=== PATIENT | male | born 1950 | race Caucasian/White ===

== ENCOUNTER 2018-06-17 12:35 | Inpatient (IN) | payer MEDICARE, OTHER ==
[2018-06-17] MEDS ORDERED: Morphine VIAL* 4 MG/ML VIAL (1 ml vial) IV ONE ×2 (13:00→17:27)
--- NOTE | 2018-06-17 13:00 | ED ---
Lower Extremity - HPI Summary HPI Summary: Patient is a 68-year-old male who presents emergency department for right hip pain after fall that occurred 2 days ago. Patient resides by himself at home. He states he was walking across the street to the bar when his knee gave out and he fell injuring his right hip. Patient denies head injury or loss of consciousness. He denies chest pain, shortness of breath, headache, lightheadedness, dizziness. Patient states pain is presently gone worsen he is unable to bear weight today. Past medical history of hypertension, hyperlipidemia, morbidly obese, hx of DVT is anticoagulated with warfarin. Symptoms are moderate in severity. Walking makes symptoms worse. Nothing makes symptoms better. - History of Current Complaint Stated Complaint: FELL Time Seen by Provider: 06/17/18 12:48 Hx Obtained From: Patient - Allergies/Home Medications Allergies/Adverse Reactions: Allergies Allergy/AdvReac Type Severity Reaction Status Date / Time No Known Allergies Allergy Verified 06/19/18 12:24 Home Medications: Home Medications Lisinopril 1 tab PO DAILY 06/17/18 [History Confirmed 06/17/18] PMH/Surg Hx/FS Hx/Imm Hx Previously Healthy: Yes Endocrine/Hematology History: Reports: Hx Anticoagulant Therapy Denies: Hx Diabetes Cardiovascular History: Reports: Hx Deep Vein Thrombosis, Hx Embolism, Hx Hypercholesterolemia, Hx Hypertension - ON MEDICATION, Hx Peripheral Vascular Disease Denies: Hx Pacemaker/ICD Respiratory History: Denies: Hx Asthma History: Denies: Hx Dialysis, Hx Renal Disease Musculoskeletal History: Reports: Hx Arthritis - hips and knees Denies: Hx Back Problems Sensory History: Reports: Hx Contacts or Glasses Denies: Hx Hearing Aid Opthamlomology History: Reports: Hx Contacts or Glasses Psychiatric History: Denies: Hx Panic Disorder - Surgical History Surgery Procedure, Year, and Place: BILATERAL KNEE SURGERIES; DENTAL SURGERIES; VEIN REMOVED FROM BACK OF LEFT LEG; Hx Anesthesia Reactions: No - Family History Known Family History: Positive: Non-Contributory - Social History Occupation: Disabled Lives: Alone Alcohol Use: None Substance Use Type: Reports: Marijuana Substance Use Comment - Amount & Last Used: marijuana helps with pain. Smoking Status (MU): Former Smoker Type: Cigarettes Review of Systems Cardiovascular: Negative Respiratory: Negative Positive: Other - Right hip pain Skin: Negative Negative: Headache, Weakness, Paresthesia, Numbness, Syncope All Other Systems Reviewed And Are Negative: Yes Physical Exam Triage Information Reviewed: Yes Vital Signs Reviewed: Yes Appearance: Positive: Well-Appearing - Pt. lying in bed in NAD. Morbidly obese. Skin: Positive: Warm, Dry Head/Face: Positive: Normal Head/Face Inspection Eyes: Positive: Normal, EOMI Neck: Positive: Supple Respiratory/Lung Sounds: Positive: Clear to Auscultation, Breath Sounds Present Cardiovascular: Positive: Normal, RRR Musculoskeletal: Positive: Other - Chronic stasis dermatitis changes to LEs. Cannot palpate right pedial pulse, will check doppler. Foot is warm. Pain on palpation and rotatoin of right hip. NO knee or distal pain Neurological: Positive: Normal, Alert, Oriented to Person Place, Time, CN Intact II-III Psychiatric: Positive: Affect/Mood Appropriate Diagnostics - Laboratory Result Diagrams: 06/19/18 05:44 06/19/18 05:45 Lab Statement: Any lab studies that have been ordered have been reviewed, and results considered in the medical decision making process. Lower Extremity Course/Dx - Course Course Of Treatment: Patient presenting for right hip pain after a mechanical fall. He is afebrile with stable vital signs. Patient states he is unable to ambulate, suspect fracture. Patient was given IV morphine and basic labs drawn. Hip x-ray is negative for obvious acute injury, reading per radiology. Given patient's inability to ambulate a CT scan was ordered to rule out occult fracture. Blood work is unremarkable other than INR elevated at 5.49. CT hip per radiology: IMPRESSION: 1. There are advanced degenerative changes of the right hip that have progressed since the. CT dated April 27, 2016, but there is no definite fracture or dislocation. 2. Gas is seen in the distal portions of the iliopsoas muscle which is of unclear clinical. relevance. These correlate to signs or symptoms of infection/myositis. Case discussed with Dr. Mancia, recommends adding CRP and sed rate. Suspicion for infection is low given fall, afebrile and normal WBC. Pt. re-examined. Pt.'s sister states that pt. has been having a hard time ambulating at home over the last few months and since fall he has been unable to walk to the bathroom. She also notes he has been having urinary incontinence. 174: Case discussed with Dr. Hearn who agrees with admission. She would like pt. admitted to hospitalist and she will see him in the morning. I spoke with hospitalist Dr. Jeffers and she has accepted pt. to her service. - Diagnoses Differential Diagnosis/HQI/PQRI: Positive: Cellulitis, Contusion, Fracture ( Closed), Sprain, Strain Provider Diagnoses: Fall, Weakness, Hip pain, Ambulatory dysfunction Discharge - Sign-Out/Discharge Documenting (check all that apply): Patient Departure - Discharge Plan Condition: Stable Disposition: ADMITTED TO [facility] - Billing Disposition and Condition Condition: STABLE Disposition: Admitted to [facility]
[2018-06-17 13:27] LABS: ABS Basophils 0.1 10^3/ul (0-0.2); ABS Eosinophils 0.1 10^3/ul (0-0.6); ABS Lymphocytes 1.9 10^3/ul (1.0-4.8); ABS Neutrophils 7.4 10^3/ul (1.5-7.7); ABS Nucleated RBC 0 10^3/ul; Eosinophil % 1.1 %; Hematocrit 39 % (42-52); Lymphocyte % 17.7 %; Mean Corpuscular HGB Conc 34 g/dl (31-36); Mean Corpuscular Hemoglobin 28 pg (27-31); Mean Corpuscular Volume 84 fL (80-94); Mean Platelet Volume 7.6 fL (7.4-10.4); Nucleated Red Blood Cells % 0; Platelet Count 205 10^3/ul (150-450); Red Cell Distribution Width 14 % (10.5-15); White Blood Count 10.5 10^3/ul (3.5-10.8)
[2018-06-17 13:46] LABS: Albumin 3.6 g/dL (3.2-5.2); Albumin/Globulin Ratio 1.1 (1-3); BUN/Creatinine Ratio 18.8 (8-20); Calcium 9.3 mg/dL (8.6-10.3); EGFR African American 138.8 (>60); EGFR Non-African American 114.7 (>60); Globulin 3.3 g/dL (2-4); Potassium 4.3 mmol/L (3.5-5.0); Total Bilirubin 0.7 mg/dL (0.2-1.0); Total Protein 6.9 g/dL (6.4-8.9)
[2018-06-17 13:49] LABS: Activated Partial Thrombo Time 46.9 seconds (26.0-36.3)
[2018-06-17 14:35] LABS: INR 5.49 (0.77-1.02)
[2018-06-17] MEDS ORDERED: DOXYcycline CAP(*) 100 MG PO ONE (15:22)
[2018-06-17 17:37] LABS: C Reactive Protein 113.34 mg/L (<8.01)
[2018-06-17] MEDS ORDERED: Morphine VIAL* 10 MG/ML 1 ML VIAL ONE (17:48)
[2018-06-17] MEDS ORDERED: Morphine VIAL* 10 MG/ML 1 ML VIAL IV ONE (17:49)
[2018-06-17] MEDS ORDERED: Clindamycin 600 MG IVPREMIX(* 600 MG/50 ML SDV IV ONE (17:51)
[2018-06-17 18:08] LABS: Erythrocyte Sed Rate 38 mm/Hr (0-40)
[2018-06-17] MEDS ORDERED: Clindamycin 600 MG/D5W BAG(*) 600 MG/50 ML BAG IV ONE (19:00)
[2018-06-17] MEDS ORDERED: Piperacillin/Tazobac ADVAN(*) 3.375 GM in NS 0.9% 100 ML* 100 ML IVPB ONE (20:04)
[2018-06-17] MEDS ORDERED: NS 0.9% 1000 ML** 1,000 ML IV SCH (20:15)
[2018-06-17] MEDS ORDERED: LORazepam INJ* 2 MG/ML 1 ML VIAL IV PUSH ONE (20:18)
[2018-06-17] MEDS ORDERED: Iohexol 300* (CONTRAST) 10 ML SDV IV ONE ×2 (20:22→20:58)
[2018-06-17] MEDS ORDERED: Zosyn per Pharmacy* NOTE FOLLOW UP SCH (21:00)
--- NOTE | 2018-06-17 21:37 | HP ---
CC: Dr. Lucia Locke HISTORY AND PHYSICAL: DATE OF ADMISSION: 06/17/18 PRIMARY CARE PROVIDER: Dr. Lucia Locke. ATTENDING PHYSICIAN WHILE IN THE HOSPITAL: Dr. Parkinson (report being dictated by Klaus Newell NP). CONSULTING ORTHOPEDIST: Dr. Lopez. CHIEF COMPLAINT: Fall. KLAUS NEWELL NP [id number]/CPS #: [id number] MTDD
[2018-06-17 21:53] LABS: Hematocrit 41 % (42-52); Hemoglobin 13.6 g/dl (14.0-18.0)
--- NOTE | 2018-06-17 22:53 | HP ---
AMENDED REPORT NOW INCLUDES DESIGNATED COSIGNER CC: Dr. Lucia Locke; Dr. Lopez * HISTORY AND PHYSICAL: DATE OF ADMISSION: 06/17/18 PRIMARY CARE PROVIDER: Dr. Lucia Locke. ATTENDING PHYSICIAN WHILE IN THE HOSPITAL: Dr. Parkinson * (report dictated by Klaus Newell NP). CHIEF COMPLAINT: Fall. HISTORY OF PRESENT ILLNESS: Mr. Doherty is a 68-year-old male patient coming in to the ED today with complaints of having a fall 2 days ago. He has a history of morbid obesity, chronic venous stasis ulcer, history of DVT and PE; he is on chronic Coumadin, history of BENTON, he has a history of polyps, severe arthritis to his right hip, hypertension, and hyperlipidemia. He comes in. He says 2 days ago, he was walking with his walker. His legs and knees got shaky. He fell and he went down and landed on his knees. He called 911 for lift assistance. He got back into his bed and he has noticed that he has had increasing pain particularly in his hips and his right knee, and he says he has been unable to bear weight on it because it has been very painful. Any time he gets up and tries to bear his weight, his legs start shaking and he falls. He denies any new incontinence of bowel. He says he is incontinent of urine over the last 3 years. He denies having any numbness or tingling to his lower extremities. He denies having any weakness. He says he has just felt that he is having increasing pain to that hip and into his knees, so he is having difficulty ambulating. He does state that prior to this he has been having intermittent cold symptoms. He denied having any fevers or chills. He said he felt stuffed up rhinorrhea, but no shortness of breath. He says that when he does cough, he does at times get some chest discomfort, but he denies any discomfort now. Denies any abdominal pain. He had 1 episode of vomiting yesterday, but none today. He says his appetite has not decreased. He was concerned because of the pain in his hip, the fact he could not really ambulate , and he came into the ED today to be evaluated. PAST MEDICAL HISTORY: Significant for: 1. Morbid obesity. 2. Chronic venous stasis ulcer. 3. DVT and PE in the past. 4. BENTON. 5. Polyps. 6. Arthritis. 7. Hypertension. 8. Hyperlipidemia. PAST SURGICAL HISTORY: He has had: 1. Knee surgery. 2. Vein stripping. 3. Tonsillectomy. HOME MEDICATIONS: Include: 1. Lisinopril 1 tablet daily. 2. Pravachol 10 mg daily. 3. Warfarin 10 mg daily. ALLERGIES TO MEDICATION: Include ZINC OXIDE. FAMILY HISTORY: His mother had colon cancer, father had prostate cancer. SOCIAL HISTORY: He is former smoker. He does not drink alcohol. Surrogate decision maker is not appointed at this point. REVIEW OF SYSTEMS: There is no documented fever. He denied any significant weight change. There is no double vision. He denies having any ear discharge. There was no rhinorrhea. There is no sore throat, no thyroid enlargement. He denied having any chest pain. There is no orthopnea. There was no nocturnal dyspnea. There was no abdominal pain. There was no dysuria. There was no frequency. No seizure. No loss of consciousness. No pruritus, no skin ulcerations. Review of 14 systems was completed, all others negative. PHYSICAL EXAMINATION GENERAL: At this time, Mr. Doherty is a 68-year-old male patient. He is sitting on the ED stretcher. He is morbidly obese. He does not appear to be in any acute distress. VITAL SIGNS: Blood pressure 122/63, pulse 93, respirations 18, O2 sat 94%, temperature was 98.2. HEENT: Head: Atraumatic and normocephalic. Eyes: EOMs are intact. Sclerae anicteric and not pale. Throat: Oral mucosa appears to be moist. No oropharyngeal erythema. NECK: Supple. LUNGS: Clear to auscultation bilaterally. There were no wheezes, rales, or rhonchi. HEART: Sounds S1, S2. He had a regular rate and rhythm. No murmurs, rubs, or gallops. ABDOMEN: Soft. It was flat, nontender. Bowel sounds were present. EXTREMITIES: He has got 5/5 dorsiflexion bilaterally. On the left leg, he has got 5/5 strength to knee flexion and extension. Hip flexion, he had good strength at 5/5 strength. The right knee is contracted and shortened, which he says has been an issue for several years. He is really unable to straighten the leg due to pain in the knee and at the hip. Sensation in distal CSMs are intact. Pulses are dopplerable bilaterally. He does have chronic venous stasis brawny discoloration to the lower extremities. NEUROLOGIC: He is awake. He is alert. He is oriented x3. His tongue is midline and his foster parent are equal. He had no gross focal deficits. SKIN: Intact. DIAGNOSTIC STUDIES/LAB DATA: WBC of 10.5, RBC of 4.6, hemoglobin of 13.3, hematocrit 39, platelet count 205. ESR of 38. His INR was 5.49, PTT 46.9. Sodium 132, his potassium was 4.3, chloride 97, bicarb 29, BUN 13, creatinine 0.69, glucose 99, calcium 9.3. Total bili 0.7, AST 26, ALT 23, alk phos 62. CK 688, CRP of 113, albumin 3.6. He did have multiple imaging in the ED. Chest x-ray, limited exam given the patient's body habitus, but impression: No active cardiopulmonary disease. He had a CT pelvis, which showed there were advanced degenerative changes of the right hip that have progressed since the CT dated 04/27/16, but there is no definite fracture or dislocation. Gas is seen in the distal portions of the iliopsoas muscle, which is of unclear clinical relevance. Please correlate to signs and symptoms of infectious myositis. He had a hip and pelvis x-ray, which showed marked degenerative changes of the right hip. Old medical records were reviewed. ASSESSMENT AND PLAN: Mr. Doherty is a 68-year-old male patient coming into the ED today with complaints of a fall 2 days ago. He was concerned because he has been having difficulty walking since. He says whenever he has to bear his weight he has significant pain in his hip. We were asked to evaluate for admission. He will be admitted under inpatient status for: 1. Right hip pain, possible iliopsoas infection. At this point, again, etiology is unclear. I did touch base with Dr. Lopez. The patient says that the hip deformity is chronic in nature. He does have severe arthritis. The plan at this point is to get an MRI of the hip. Orthopedics consult has been placed. I will image the abdomen with contrast, a CT abdomen and pelvis, to make sure there are no signs of infected hematoma that may be driving the CRP. I would recommend PT evaluation if no definitive fracture is noted. At this point, I will get Orthopedics involved. I will panculture him. I will check for uric acid level. I will check for flu as well. I will check UA to make sure there is no other reason for the elevated CRP and we will continue to follow. Because of the fall and the elevated INR, I am checking a CT of the brain. 2. Coagulopathy. Again, we will hold his Coumadin, check his INR, and follow. I will check serial H and H as well and continue to monitor. 3. Chronic venous stasis ulcers. It is stable at this point. Follow up with his PCP. 4. History of deep venous thrombosis/pulmonary embolus. We are going to get the INR down between 2 and 3 and then restart his Coumadin. 5. Nonalcoholic steatohepatitis. Follow with PCP. 6. Hypertension. In the setting of acute illness, I will hold his lisinopril. We will monitor. 7. Hyperlipidemia. Continue statin therapy. 8. Deep venous thrombosis prophylaxis. He is again coagulopathic at this point. I have just placed him on SCDs. 9. Code status: Full code. 10. Fluids, electrolytes, and nutrition: He can have a regular diet. TIME SPENT: Time spent on the admission was 60 minutes, greater than half of the time was spent [id number] with the patient obtaining my history and physical, other half of the time was spent going over the plan of care with the patient and implementing plan of care. I did discuss the plan of care with my attending, Dr. Parkinson; he is in agreement. KLAUS NEWELL, LUCÍA [id number]/JI #: [id number] DEREK
[2018-06-17] MEDS: oxyCODONE/Acetamin 5/325 MG* TAB PO PRN (23:33)
[2018-06-17 23:37] LABS: Influenza A Molecular NEGATIVE (Negative); Influenza B Molecular NEGATIVE (Negative)
--- NOTE | 2018-06-18 00:21 | PN ---
Hospitalist Progress Note Date of Service: 06/18/18 Will start patient on zosyn, as there is gas seen on pelvic CT and elevated CRP. We cannot get an MRI due to body habitus. Ortho consultation has been requested, will follow up their recommendations, in meantime until infectious etiology has not been ruled out, will continue zosyn.
[2018-06-18] MEDS ORDERED: ZOSYN 3.375 GM x ONE DOSE over 30 miuntes IVPB ×2 (02:30)
[2018-06-18 03:23] LABS: Urine Appearance Clear; Urine Bacteria Absent (Absent); Urine Bilirubin Negative (Negative); Urine Blood 1+ (Negative); Urine Color Yellow; Urine Glucose Negative (Negative); Urine Ketones Trace (Negative); Urine Nitrite Negative (Negative); Urine Protein Negative (Negative); Urine Red Blood Cell Trace(0-2/hpf) (Absent); Urine Specific Gravity 1.021 (1.010-1.030); Urine Squamous Epithelial Cell Present (Absent); Urine Urobilinogen Negative (Negative); Urine White Blood Cell Trace(0-5/hpf) (Absent)
[2018-06-18] MEDS: Piperacillin/Tazobac ADVAN(*) 3.375 GM in NS 0.9% 100 ML* 100 ML IVPB SCH ×3 (05:21→21:20)
[2018-06-18 06:36] LABS: ABS Basophils 0.4 10^3/ul (0-0.2); ABS Eosinophils 0.2 10^3/ul (0-0.6); ABS Lymphocytes 1.9 10^3/ul (1.0-4.8); ABS Neutrophils 5.7 10^3/ul (1.5-7.7); ABS Nucleated RBC 0 10^3/ul; Eosinophil % 2.4 %; Hematocrit 38 % (42-52); Hemoglobin 12.6 g/dl (14.0-18.0); Lymphocyte % 20.5 %; Mean Corpuscular HGB Conc 34 g/dl (31-36); Mean Corpuscular Hemoglobin 28 pg (27-31); Mean Corpuscular Volume 84 fL (80-94); Mean Platelet Volume 7.9 fL (7.4-10.4); Nucleated Red Blood Cells % 0; Platelet Count 199 10^3/ul (150-450); Red Blood Count 4.48 10^6/ul (4.00-5.40); Red Cell Distribution Width 14 % (10.5-15); White Blood Count 9.2 10^3/ul (3.5-10.8)
[2018-06-18 06:52] LABS: BUN/Creatinine Ratio 16.4 (8-20); C Reactive Protein 117.52 mg/L (<8.01); Calcium 8.8 mg/dL (8.6-10.3); EGFR African American 130.1 (>60); EGFR Non-African American 107.5 (>60); Potassium 3.9 mmol/L (3.5-5.0)
[2018-06-18 06:55] LABS: INR 6.36 (0.77-1.02)
[2018-06-18] MEDS ORDERED: PRAVASTATIN 10 MG PO SCH (09:00)
[2018-06-18] MEDS ORDERED: LISINOPRIL PO SCH (09:00)
[2018-06-18] MEDS ORDERED: Nicotine GUM* 2 MG PO PRN (10:33)
--- NOTE | 2018-06-18 11:06 | PN ---
Progress Note - Progress Note Date of Service: 06/18/18 Note: Pt seen and examined. Discussed case with Klaus Newell overnight. Pt with severe OA of hip but not candidate for surgery s/p fall on wednesday. CT neg for fracture and shows possible gas. Recommend no abx as no white count and although elevated CRP, pt not febrile with elevated white count. Pt not immuno- suppressed. Recommend USG aspiration of hip. Eval for infection or blood as fracture not easy to visualize. D/w Dr Locke. If pt needs surgery, would transfer out.
[2018-06-18] MEDS: Gabapentin CAP(*) 300 MG PO SCH ×4 (11:32→21:02)
[2018-06-18] MEDS: Nystatin TOP POWDER* 15 GM BTL TOPICAL SCH ×3 (11:33→21:22)
[2018-06-18] MEDS: oxyCODONE/Acetamin 5/325 MG* TAB PO PRN ×2 (15:02→21:02)
--- NOTE | 2018-06-18 16:15 | CONS ---
CONSULTATION REPORT: DATE OF CONSULT: 06/18/18 ATTENDING PHYSICIAN: Britany Lopez MD. CHIEF COMPLAINT: Right hip pain. HISTORY OF PRESENT ILLNESS: Briefly, Chong Doherty is a 68-year-old patient of Dr. Locke, who presents to the ER with complaints of hip pain after a fall on Wednesday. He has a history of significant right hip osteoarthritis as well as morbid obesity, chronic venous stasis ulcer, history of DVT, PE, is on chronic Coumadin, history of BENTON, polyps, severe arthritis, hypertension and hyperlipidemia. He is able to weight bear with a walker, but walks slowly and drags his leg. He has a lot of stiffness. He is not a surgical candidate for total hip replacement. He says 2 days ago he was walking with a walker, his legs got shaky and he fell down landing on his knees. He had a lot of pain. He was able to get back to his bed. His hips and his knees were bothering him a bit more. He says he is unable to bear weight on it, partially because of pain , partially because he feels wobbly, he cannot support himself. He says no bowel or bladder symptoms. We were consulted because of increasing pain. He has not been febrile. He has elevated ESR, CRP, but no elevated white count. No recent history of illnesses. PAST MEDICAL HISTORY: Significant for morbid obesity, chronic venous stasis ulcer, DVT, PE in the past, BENTON, polyps, hypertension, hyperlipidemia, arthritis. 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 PAST SURGICAL HISTORY: Knee surgery, vein stripping, tonsillectomy. HOME MEDICATIONS: 1. Lisinopril. 2. Pravachol. 3. Warfarin. ALLERGIES TO MEDICATIONS: ZINC OXIDE. FAMILY HISTORY: Mother with colon cancer, father with prostate cancer. SOCIAL HISTORY: He is right hand dominant. He does not drink alcohol. He quit smoking. He weight bears with a walker, but he is unable to walk normally , he drags his right foot because of the stiffness and pain in his hip. REVIEW OF SYSTEMS: A 14-point review of systems reviewed with the patient, significant for right hip pain, inability to weight bear, no fevers or chills, no numbness or tingling. No recent illnesses. No chest pain or shortness of breath. Otherwise, remaining systems are negative. PHYSICAL EXAM: He is in no acute distress. He is lying in bed. He is morbidly obese. Vitals were obtained, demonstrate temperature of 97.9, pulse of 75, respiratory rate 18, O2 saturation 98%, blood pressure 144/55. EOMI. Chest is clear to auscultation. Heart is regular rate and rhythm. Abdomen is soft and nontender. Examination of right hip demonstrates he is externally rotated, he has limited range of motion with pain, but I am able to passively and he is able to actively move it. He is able to flex and extend his knee, dorsiflex and plantar flex his ankles, flex and extend his digits. He has venous stasis ulcers distally. He has decreased sensation about the first dorsal webspace; medial, lateral, dorsal and plantar foot. He has a brisk cap refill. He has a DP pulse that is present, but difficult to obtain. There is no erythema or warmth above the leg. No calf pain. DIAGNOSTIC STUDIES/LAB DATA: X-rays of the right hip were obtained last evening , it demonstrates severe osteoarthritis of the right hip with no evidence of fracture. CT scan was also identified that demonstrates no obvious fracture. He does have severe osteoarthritis, which would limit his range of motion. Per the CT results, there is possibly some gas changes in the iliopsoas. There is no obvious effusion that is apparent. CT chest, abdomen and pelvis was obtained as well that is near the hip joint as well; again no fracture is obvious, no effusion. Labs obtained demonstrate a white count of 9.2, hematocrit of 38, platelet count of 199. INR of 6.36. Sodium of 133, potassium 3.9, chloride 97, carbon dioxide 29, BUN of 12, creatinine 0.73, glucose of 105, CRP is 117 up from 113 yesterday, ESR is 38 yesterday. UA was negative. ASSESSMENT AND PLAN: I do not believe he has an infection based on these labs and his vital signs although his CRP is quite elevated. I do think that he may have had a injury, may be there is a fracture that is hard to visualize. I would ideally like to get an MRI to look at his hip and psoas portion. The patient is too large to obtain an MRI at this facility, so I would recommend ultrasound-guided injection of the hip because I do not feel that he meets any criteria to start antibiotics prophylactically as he only has an elevated CRP, which can be seen in multiple situations. He does have uric acid 6.7, has a history of gout supposedly but that is normal. I would like to obtain an ultrasound to evaluate for an effusion. Obviously, he has an INR that is too high, so we cannot do an aspiration, but if we do once the INR normalizes, I would aspirate the hip. If he has blood, then I likely would treat it as a fracture that is nonoperatively. If he has an infection, I would transfer him out to another facility as we are not able to handle a patient of this size in our operating room. I will continue to follow the patient and follow the results of the ultrasound. This was discussed with Dr. Locke. [id number]/[facility] #: [id number] DEREK
[2018-06-18] MEDS ORDERED: Nicotine Patch Removal NOTE PATCH OFF SCH (21:00)
[2018-06-18] MEDS: Cyclobenzaprine TAB* 10 MG PO PRN (21:01)
[2018-06-18] MEDS: PRAVASTATIN 10 MG PO SCH (21:39)
[2018-06-19] MEDS: Gabapentin CAP(*) 300 MG PO SCH ×5 (05:20→22:38)
[2018-06-19] MEDS: Piperacillin/Tazobac ADVAN(*) 3.375 GM in NS 0.9% 100 ML* 100 ML IVPB SCH ×3 (05:21→22:38)
[2018-06-19 06:19] LABS: ABS Basophils 0 10^3/ul (0-0.2); ABS Eosinophils 0.4 10^3/ul (0-0.6); ABS Lymphocytes 1.9 10^3/ul (1.0-4.8); ABS Monocytes 0.9 10^3/ul (0-0.8); ABS Neutrophils 5.6 10^3/ul (1.5-7.7); ABS Nucleated RBC 0 10^3/ul; Eosinophil % 4.1 %; Hematocrit 37 % (42-52); Hemoglobin 12.4 g/dl (14.0-18.0); Lymphocyte % 21.2 %; Mean Corpuscular HGB Conc 33 g/dl (31-36); Mean Corpuscular Hemoglobin 28 pg (27-31); Mean Corpuscular Volume 85 fL (80-94); Mean Platelet Volume 7.9 fL (7.4-10.4); Nucleated Red Blood Cells % 0; Platelet Count 203 10^3/ul (150-450); Red Blood Count 4.39 10^6/ul (4.00-5.40); Red Cell Distribution Width 15 % (10.5-15); White Blood Count 8.7 10^3/ul (3.5-10.8)
[2018-06-19 06:42] LABS: Albumin 3.1 g/dL (3.2-5.2); Albumin/Globulin Ratio 0.9 (1-3); BUN/Creatinine Ratio 14.7 (8-20); C Reactive Protein 97.68 mg/L (<8.01); Calcium 8.7 mg/dL (8.6-10.3); EGFR African American 141.2 (>60); EGFR Non-African American 116.7 (>60); Globulin 3.5 g/dL (2-4); Total Bilirubin 0.5 mg/dL (0.2-1.0); Total Protein 6.6 g/dL (6.4-8.9)
--- NOTE | 2018-06-19 08:10 | PN ---
Progress Note - Progress Note Date of Service: 06/19/18 Note: Pt seen and examined. Hip pain unchanged. Denies numbness and tingling. No calf pain or SOB. Sleeping in bed. Temp Pulse Resp BP Pulse Ox 97.9 F 76 20 135/53 92 06/19/18 07:20 06/19/18 07:20 06/19/18 07:20 06/19/18 07:20 06/19/18 07:20 R hip externally rotated and shortened. Still able to move about 20 degrees. able to flex/ext knee. diminished sensation distally. extremity warm and well perfused Laboratory Results - last 24 hr 06/19/18 06/19/18 05:44 05:45 WBC 8.7 RBC 4.39 Hgb 12.4 L Hct 37 L MCV 85 MCH 28 MCHC 33 RDW 15 Plt Count 203 MPV 7.9 Neut % (Auto) 63.6 Lymph % (Auto) 21.2 Mayes % (Auto) 10.7 Eos % (Auto) 4.1 Baso % (Auto) 0.4 Absolute Neuts (auto) 5.6 Absolute Lymphs (auto) 1.9 Absolute Monos (auto) 0.9 H Absolute Eos (auto) 0.4 Absolute Basos (auto) 0 Absolute Nucleated RBC 0 Nucleated RBC % 0 Sodium 136 Potassium 4.0 Chloride 99 L Carbon Dioxide 31 Anion Gap 6 BUN 10 Creatinine 0.68 Est GFR ( Amer) 141.2 Est GFR (Non-Af Amer) 116.7 BUN/Creatinine Ratio 14.7 Glucose 115 H Calcium 8.7 Total Bilirubin 0.50 AST 28 ALT 24 Alkaline Phosphatase 62 C-Reactive Protein 97.68 H Total Protein 6.6 Albumin 3.1 L Globulin 3.5 Albumin/Globulin Ratio 0.9 L USG: negative for effusion. A/P 68 with with R hip pain unable to ambulate CRP trending down. No WBC plan for NM scan to eval for increased uptake no effusion suggests no infection Pt clinically not worsening. will continue to treat conservatively
[2018-06-19] MEDS: oxyCODONE/Acetamin 5/325 MG* TAB PO PRN (09:40)
[2018-06-19] MEDS: Nicotine PATCH 21 MG/24 HR* PATCH TRANSDERM SCH (09:42)
[2018-06-19 11:56] LABS: INR 3.25 (0.77-1.02)
[2018-06-19] MEDS: Polyethylene Glycol 3350* 17 GM PACKET ONE ×2 (12:06→12:09)
[2018-06-19] MEDS: Nystatin TOP POWDER* 15 GM BTL TOPICAL SCH ×3 (15:01→22:31)
[2018-06-19] MEDS ORDERED: Polyethylene Glycol 3350* 17 GM PACKET PO PRN (21:00)
[2018-06-19] MEDS: Nicotine Patch Removal NOTE PATCH OFF SCH (22:32)
[2018-06-19] MEDS: PRAVASTATIN 10 MG PO SCH (22:39)
[2018-06-20] MEDS: Piperacillin/Tazobac ADVAN(*) 3.375 GM in NS 0.9% 100 ML* 100 ML IVPB SCH (05:49)
[2018-06-20] MEDS: Gabapentin CAP(*) 300 MG PO SCH ×5 (05:52→20:11)
[2018-06-20] MEDS: oxyCODONE/Acetamin 5/325 MG* TAB PO PRN ×2 (09:55→17:17)
[2018-06-20] MEDS: Nicotine PATCH 21 MG/24 HR* PATCH TRANSDERM SCH (09:56)
[2018-06-20] MEDS: Nystatin TOP POWDER* 15 GM BTL TOPICAL SCH ×3 (09:59→20:10)
[2018-06-20] MEDS ORDERED: Nicotine PATCH 21 MG/24 HR* PATCH TRANSDERM ONE (11:00)
[2018-06-20] MEDS: Nicotine Patch Removal NOTE PATCH OFF SCH (20:06)
[2018-06-20] MEDS: PRAVASTATIN 10 MG PO SCH (20:11)
[2018-06-21] MEDS: Gabapentin CAP(*) 300 MG PO SCH ×5 (05:34→20:59)
[2018-06-21 07:03] LABS: Hematocrit 39 % (42-52); Hemoglobin 13.1 g/dl (14.0-18.0); Mean Corpuscular HGB Conc 34 g/dl (31-36); Mean Corpuscular Hemoglobin 29 pg (27-31); Mean Corpuscular Volume 85 fL (80-94); Mean Platelet Volume 7.5 fL (7.4-10.4); Platelet Count 217 10^3/ul (150-450); Red Blood Count 4.61 10^6/ul (4.00-5.40); Red Cell Distribution Width 14 % (10.5-15); White Blood Count 7.7 10^3/ul (3.5-10.8)
[2018-06-21 07:19] LABS: Albumin 3.3 g/dL (3.2-5.2); Albumin/Globulin Ratio 0.9 (1-3); BUN/Creatinine Ratio 15.8 (8-20); C Reactive Protein 45.47 mg/L (<8.01); EGFR African American 173.1 (>60); Globulin 3.5 g/dL (2-4); Potassium 4.4 mmol/L (3.5-5.0); Total Bilirubin 0.4 mg/dL (0.2-1.0); Total Protein 6.8 g/dL (6.4-8.9)
[2018-06-21 07:20] LABS: INR 1.51 (0.77-1.02)
[2018-06-21] MEDS: Nystatin TOP POWDER* 15 GM BTL TOPICAL SCH ×3 (09:35→21:04)
[2018-06-21] MEDS: Nicotine PATCH 21 MG/24 HR* PATCH TRANSDERM SCH (09:35)
[2018-06-21] MEDS: oxyCODONE/Acetamin 5/325 MG* TAB PO PRN ×2 (11:17→16:57)
[2018-06-21] MEDS: Heparin VIAL(*) 5000 UNITS/ML VIAL (FIVE THOUSAND) SUBCUT SCH ×2 (14:43→21:09)
[2018-06-21 16:14] LABS: ABS Basophils 0.1 10^3/ul (0-0.2); ABS Eosinophils 0.3 10^3/ul (0-0.6); ABS Lymphocytes 2.3 10^3/ul (1.0-4.8); ABS Monocytes 0.9 10^3/ul (0-0.8); ABS Neutrophils 5.1 10^3/ul (1.5-7.7); ABS Nucleated RBC 0 10^3/ul; Eosinophil % 3.8 %; Hematocrit 40 % (42-52); Hemoglobin 13.4 g/dl (14.0-18.0); Lymphocyte % 26.7 %; Mean Corpuscular HGB Conc 34 g/dl (31-36); Mean Corpuscular Hemoglobin 29 pg (27-31); Mean Corpuscular Volume 85 fL (80-94); Mean Platelet Volume 7.4 fL (7.4-10.4); Nucleated Red Blood Cells % 0; Platelet Count 239 10^3/ul (150-450); Red Blood Count 4.72 10^6/ul (4.00-5.40); Red Cell Distribution Width 14 % (10.5-15); White Blood Count 8.7 10^3/ul (3.5-10.8)
[2018-06-21 16:20] LABS: Activated Partial Thrombo Time 38.3 seconds (26.0-36.3); INR 1.36 (0.77-1.02)
[2018-06-21 16:23] LABS: EGFR African American 122.3 (>60); EGFR Non-African American 101.1 (>60)
[2018-06-21] MEDS ORDERED: Warfarin TAB(*) 10 MG PO ONE (17:00)
[2018-06-21] MEDS: PRAVASTATIN 10 MG PO SCH (20:59)
[2018-06-21] MEDS: Nicotine Patch Removal NOTE PATCH OFF SCH (21:03)
[2018-06-22] MEDS: Gabapentin CAP(*) 300 MG PO SCH ×5 (05:34→20:29)
[2018-06-22] MEDS: Heparin VIAL(*) 5000 UNITS/ML VIAL (FIVE THOUSAND) SUBCUT SCH ×3 (05:34→20:30)
[2018-06-22 06:47] LABS: INR 1.23 (0.77-1.02)
--- NOTE | 2018-06-22 07:26 | PN ---
Progress Note - Progress Note Date of Service: 06/22/18 Note: Pt seen and examined. Resting comfortably. Hip pain improving. Has not tried WB. Afebrile. Temp Pulse Resp BP Pulse Ox 96.9 F 84 16 153/41 92 06/22/18 03:54 06/22/18 03:54 06/22/18 05:34 06/22/18 03:54 06/22/18 03:54 NAD. sitting comfortably. able to move hip slightly no real change from previous ROM. calf soft and nontender. sensation at baseline. warm, well perfused extremity. NM scan negative for fracture or infection Laboratory Results - last 24 hr 06/21/18 06/21/18 06/21/18 15:56 15:56 15:56 WBC 8.7 RBC 4.72 Hgb 13.4 L Hct 40 L MCV 85 MCH 29 MCHC 34 RDW 14 Plt Count 239 MPV 7.4 Neut % (Auto) 58.9 Lymph % (Auto) 26.7 [place] % (Auto) 10.0 Eos % (Auto) 3.8 Baso % (Auto) 0.6 Absolute Neuts (auto) 5.1 Absolute Lymphs (auto) 2.3 Absolute Monos (auto) 0.9 H Absolute Eos (auto) 0.3 Absolute Basos (auto) 0.1 Absolute Nucleated RBC 0 Nucleated RBC % 0 INR (Anticoag Therapy) 1.36 H APTT 38.3 H BUN 12 Creatinine 0.77 Est GFR ( Amer) 122.3 Est GFR (Non-Af Amer) 101.1 C-Reactive Protein 06/22/18 06/22/18 06:29 06:29 WBC RBC Hgb Hct MCV MCH MCHC RDW Plt Count MPV Neut % (Auto) Lymph % (Auto) [place] % (Auto) Eos % (Auto) Baso % (Auto) Absolute Neuts (auto) Absolute Lymphs (auto) Absolute Monos (auto) Absolute Eos (auto) Absolute Basos (auto) Absolute Nucleated RBC Nucleated RBC % INR (Anticoag Therapy) 1.23 H APTT BUN Creatinine Est GFR ( Amer) Est GFR (Non-Af Amer) C-Reactive Protein 28.28 H A/P 68 yo M with R hip pain. Likely contusion Would allow patient to try to mobilize. OOB to chair may try to stand and pivot Per discussion with Dr Locke, abx were not d/c'd on HD1 but rather last evening. CRP trending down anyway. Cultures all negative. Suspect not infection although cannot be proved High likelihood that it was not a septic joint however due to patients recovery Will monitor
[2018-06-22] MEDS: oxyCODONE/Acetamin 5/325 MG* TAB PO PRN ×2 (09:44→17:59)
[2018-06-22] MEDS: Nicotine PATCH 21 MG/24 HR* PATCH TRANSDERM SCH (09:44)
[2018-06-22] MEDS: Nystatin TOP POWDER* 15 GM BTL TOPICAL SCH ×3 (09:45→20:28)
[2018-06-22] MEDS: Lisinopril TAB* 10 MG PO SCH (10:06)
--- NOTE | 2018-06-22 14:31 | CONSULT ---
Consult Consult: WOUND CONSULT NOTE Date of Service: 06/22/18 History: Interval History: Patient seen and examined at bedside. He reports urinary incontinence at baseline for the last 3 years. Denies fever or chills. He has pain in his left hip. Past Medical/Family/Social History: Family History: Unchanged from Admission Social History: Unchanged from Admission Past Medical History: Unchanged from Admission Objective: Active Medications: Heparin Sodium (Porcine) (Heparin Vial(*)) 5,000 units SUBCUT Q8HR [facility] Pharmacy Profile Note (Nicotine Patch Removal Note*) 2 note PATCH OFF 2100 [facility] Oxycodone/Acetaminophen (Percocet 5/325 Tab*) 2 tab PO Q6H PRN Reason: PAIN Cyclobenzaprine HCl (Flexeril Tab*) 10 mg PO BID PRN Reason: SPASMS Gabapentin (Neurontin Cap(*)) 600 mg PO FIVE TIMES DAILY [facility] Lisinopril (Prinivil Tab*) 20 mg PO DAILY [facility] Nicotine (Nicotine Patch 21 Mg/24 Hr*) 2 patch TRANSDERM DAILY@0800 [facility] Nicotine Polacrilex (Nicotine Gum*) 2 mg PO Q2H PRN Reason: CRAVING Nystatin (Nystatin Top Powder*) 1 applic TOPICAL TID [facility] Polyethylene Glycol/Electrolytes (Miralax*) 17 gm PO BID PRN Reason: CONSTIPATION Pravastatin Sodium (Pravachol (Nf)) 10 mg PO 2100 [facility] Warfarin Sodium (Coumadin Tab(*)) 10 mg PO DAILY@1700 [facility]; Protocol Vital Signs: 06/22/18 06:45 Temperature 97.5 F Temperature Oral Source Pulse Rate 79 Respiratory 18 Rate Blood Pressure 151/78 (mmHg) Blood Pressure 91 Mean O2 Sat by Pulse 94 Oximetry Patient on Room Yes Air Exam: General: A morbidly obese male laying in bed in no acute distress. Neurological: Alert and Oriented. Skin: Right buttock with moisture associated skin injury. Pealing skin noted and superficial open area. [place] wound bed. Open area 3.2 cm x 3 cm x 0.1 cm. Left buttock with an abrasion. Data: Labs: 06/21/18 06/21/18 06:19 15:56 WBC 8.7 Hgb 13.4 L Hct 40 L Plt Count 239 Sodium 135 Potassium 4.4 Chloride 98 L Carbon Dioxide 31 BUN 9 Creatinine 0.57 L Glucose 114 H C-Reactive Protein 45.47 H Total Protein 6.8 Albumin 3.3 Assessment/Plan: Mr. Doherty is a 68 yo male with PMH significant for morbid obesity chronic venous stasis ulcer, DVT and PE, [place], arthritis, HTN, and HLD who presented to the emergency room with complaints of a fall 2 days prior to his presentation with difficulty ambulating since the fall. 1. Moisture associated skin injury: Right buttock with superficial open area and pealing skin. Patient is incontinent of urine at baseline and has been incontinent of loose stools since admission to the hospital. Would not recommend use of a dressing and use of barrier cream. Encouraged frequent position changes and incontinence care as needed. 2. Morbid obesity: BMI ~44. VTE PPX: SCDs and SQ Heparin Diet: Regular Code Status: Full Code Disposition: Inpatient. Disposition per Primary Medicine Team. Time Spent: 20 minutes was spend in direct patient care. Attending: Dr. Randa Whitmore MD
[2018-06-22] MEDS: Warfarin TAB(*) 10 MG PO SCH (17:59)
[2018-06-22] MEDS: PRAVASTATIN 10 MG PO SCH (20:29)
[2018-06-22] MEDS: Nicotine Patch Removal NOTE PATCH OFF SCH (20:30)
[2018-06-23] MEDS: Gabapentin CAP(*) 300 MG PO SCH ×5 (05:34→21:15)
[2018-06-23] MEDS: Heparin VIAL(*) 5000 UNITS/ML VIAL (FIVE THOUSAND) SUBCUT SCH ×3 (05:34→21:17)
[2018-06-23 07:08] LABS: INR 1.19 (0.77-1.02)
[2018-06-23 07:40] LABS: BUN/Creatinine Ratio 24.4 (8-20); C Reactive Protein 21.5 mg/L (<8.01); Calcium 9.1 mg/dL (8.6-10.3); EGFR African American 120.5 (>60); EGFR Non-African American 99.6 (>60); Potassium 4.6 mmol/L (3.5-5.0)
[2018-06-23] MEDS: Nicotine PATCH 21 MG/24 HR* PATCH TRANSDERM SCH (10:03)
[2018-06-23] MEDS: Lisinopril TAB* 10 MG PO SCH (10:03)
[2018-06-23] MEDS: Nystatin TOP POWDER* 15 GM BTL TOPICAL SCH ×3 (10:05→21:19)
[2018-06-23] MEDS: oxyCODONE/Acetamin 5/325 MG* TAB PO PRN ×2 (10:10→17:37)
--- NOTE | 2018-06-23 13:07 | PN ---
Progress Note - Progress Note Date of Service: 06/23/18 SOAP: Subjective: [] Pt seen at bedside. He reports no change in right hip pain from yesterday. Denies feeling of fever or chills. Objective: []General: NAD RLE: No erythema or fluctuance about right hip. R hip is tender to deep palpation. He has minimal ROM at the hip, though he is able to produce roughly 20 degrees flexion. Able to flex and extend at the knee and ankle. Baseline decreased sensation distally. Capillary refill less than two seconds distally. Assessment: []A/P 68 yo M with R hip pain. Likely contusion Plan: [ Allow pt to try to mobilize - OOB to chair, stand and pivot. CRP still trending down Continue to monitor Vital Signs Temp 97.9 F 06/23/18 11:18 Pulse 102 06/23/18 11:18 Resp 20 06/23/18 11:18 BP 146/70 06/23/18 11:18 Pulse Ox 94 06/23/18 11:18 Intake & Output 06/22/18 06/23/18 06/23/18 18:59 06:59 18:59 Intake Total 1820 1720 590 Output Total 200 150 Balance 1620 1570 590 Intake: Oral 1820 1720 590 Output: Urine 200 150 Other: # Bowel Movements 1 Estimated Stool Amount Small # Voids 0 Laboratory Last Values WBC 8.7 10^3/ul (3.5-10.8) 06/21/18 15:56 RBC 4.72 10^6/ul (4.00-5.40) 06/21/18 15:56 Hgb 13.4 g/dl (14.0-18.0) L 06/21/18 15:56 Hct 40 % (42-52) L 06/21/18 15:56 MCV 85 fL (80-94) 06/21/18 15:56 MCH 29 pg (27-31) 06/21/18 15:56 MCHC 34 g/dl (31-36) 06/21/18 15:56 RDW 14 % (10.5-15) 06/21/18 15:56 Plt Count 239 10^3/ul (150-450) 06/21/18 15:56 MPV 7.4 fL (7.4-10.4) 06/21/18 15:56 Neut % (Auto) 58.9 % 06/21/18 15:56 Lymph % (Auto) 26.7 % 06/21/18 15:56 [place] % (Auto) 10.0 % 06/21/18 15:56 Eos % (Auto) 3.8 % 06/21/18 15:56 Baso % (Auto) 0.6 % 06/21/18 15:56 Absolute Neuts (auto) 5.1 10^3/ul (1.5-7.7) 06/21/18 15:56 Absolute Lymphs (auto) 2.3 10^3/ul (1.0-4.8) 06/21/18 15:56 Absolute Monos (auto) 0.9 10^3/ul (0-0.8) H 06/21/18 15:56 Absolute Eos (auto) 0.3 10^3/ul (0-0.6) 06/21/18 15:56 Absolute Basos (auto) 0.1 10^3/ul (0-0.2) 06/21/18 15:56 Absolute Nucleated RBC 0 10^3/ul 06/21/18 15:56 Nucleated RBC % 0 06/21/18 15:56 ESR 38 mm/Hr (0-40) 06/17/18 13:12 INR (Anticoag Therapy) 1.19 (0.77-1.02) H 06/23/18 06:42 APTT 38.3 seconds (26.0-36.3) H 06/21/18 15:56 Sodium 134 mmol/L (135-145) L 06/23/18 06:42 Potassium 4.6 mmol/L (3.5-5.0) 06/23/18 06:42 Chloride 98 mmol/L (101-111) L 06/23/18 06:42 Carbon Dioxide 31 mmol/L (22-32) 06/23/18 06:42 Anion Gap 5 mmol/L (2-11) 06/23/18 06:42 BUN 19 mg/dL (6-24) 06/23/18 06:42 Creatinine 0.78 mg/dL (0.67-1.17) 06/23/18 06:42 Est GFR ( Amer) 120.5 (>60) 06/23/18 06:42 Est GFR (Non-Af Amer) 99.6 (>60) 06/23/18 06:42 BUN/Creatinine Ratio 24.4 (8-20) H 06/23/18 06:42 Glucose 116 mg/dL (70-100) H 06/23/18 06:42 Uric Acid 6.7 mg/dL (4.4-7.6) 06/17/18 21:35 Calcium 9.1 mg/dL (8.6-10.3) 06/23/18 06:42 Total Bilirubin 0.40 mg/dL (0.2-1.0) 06/21/18 06:19 AST 22 U/L (13-39) 06/21/18 06:19 ALT 23 U/L (7-52) 06/21/18 06:19 Alkaline Phosphatase 63 U/L (34-104) 06/21/18 06:19 Total Creatine Kinase 688 U/L (10-223) H 06/17/18 13:12 C-Reactive Protein 21.50 mg/L (<8.01) H 06/23/18 06:42 Total Protein 6.8 g/dL (6.4-8.9) 06/21/18 06:19 Albumin 3.3 g/dL (3.2-5.2) 06/21/18 06:19 Globulin 3.5 g/dL (2-4) 06/21/18 06:19 Albumin/Globulin Ratio 0.9 (1-3) L 06/21/18 06:19 Urine Color Yellow 06/18/18 03:10 Urine Appearance Clear 06/18/18 03:10 Urine pH 5.0 (5-9) 06/18/18 03:10 Ur Specific [place] 1.021 (1.010-1.030) 06/18/18 03:10 Urine Protein Negative (Negative) 06/18/18 03:10 Urine Ketones Trace (Negative) A 06/18/18 03:10 Urine Blood 1+ (Negative) A 06/18/18 03:10 Urine Nitrate Negative (Negative) 06/18/18 03:10 Urine Bilirubin Negative (Negative) 06/18/18 03:10 Urine Urobilinogen Negative (Negative) 06/18/18 03:10 Ur Leukocyte Esterase Negative (Negative) 06/18/18 03:10 Urine WBC (Auto) Trace(0-5/hpf) (Absent) 06/18/18 03:10 Urine RBC (Auto) Trace(0-2/hpf) (Absent) 06/18/18 03:10 Ur Squamous Epith Cells Present (Absent) A 06/18/18 03:10 Urine Bacteria Absent (Absent) 06/18/18 03:10 Urine Glucose Negative (Negative) 06/18/18 03:10 Influenza A (Rapid) Negative (Negative) 06/17/18 23:25 Influenza B (Rapid) Negative (Negative) 06/17/18 23:25
[2018-06-23] MEDS: Warfarin TAB(*) 10 MG PO SCH (17:31)
[2018-06-23] MEDS: PRAVASTATIN 10 MG PO SCH (21:16)
[2018-06-23] MEDS: Nicotine Patch Removal NOTE PATCH OFF SCH (21:16)
[2018-06-24 05:05] LABS: ABS Basophils 0.1 10^3/ul (0-0.2); ABS Eosinophils 0.3 10^3/ul (0-0.6); ABS Lymphocytes 2.5 10^3/ul (1.0-4.8); ABS Monocytes 0.7 10^3/ul (0-0.8); ABS Neutrophils 4.6 10^3/ul (1.5-7.7); ABS Nucleated RBC 0 10^3/ul; Eosinophil % 3.3 %; Hematocrit 39 % (42-52); Hemoglobin 12.7 g/dl (14.0-18.0); Lymphocyte % 30.3 %; Mean Corpuscular HGB Conc 33 g/dl (31-36); Mean Corpuscular Hemoglobin 28 pg (27-31); Mean Corpuscular Volume 86 fL (80-94); Mean Platelet Volume 7.2 fL (7.4-10.4); Nucleated Red Blood Cells % 0; Platelet Count 205 10^3/ul (150-450); Red Blood Count 4.54 10^6/ul (4.00-5.40); Red Cell Distribution Width 15 % (10.5-15); White Blood Count 8.2 10^3/ul (3.5-10.8)
[2018-06-24 05:10] LABS: INR 1.33 (0.77-1.02)
[2018-06-24] MEDS: Gabapentin CAP(*) 300 MG PO SCH ×5 (06:11→20:57)
[2018-06-24] MEDS: Heparin VIAL(*) 5000 UNITS/ML VIAL (FIVE THOUSAND) SUBCUT SCH ×3 (06:12→20:59)
[2018-06-24] MEDS: Nicotine PATCH 21 MG/24 HR* PATCH TRANSDERM SCH (09:26)
[2018-06-24] MEDS: Nystatin TOP POWDER* 15 GM BTL TOPICAL SCH ×3 (09:26→20:59)
[2018-06-24] MEDS: Lisinopril TAB* 10 MG PO SCH (09:26)
--- NOTE | 2018-06-24 13:23 | PN ---
Progress Note - Progress Note Date of Service: 06/24/18 SOAP: Subjective: []Patient seen OOB in chair. Reports right hip pain, unchanged since yesterday. No fever, chills. Objective: [] Vital Signs Temp 97.7 F 06/24/18 07:35 Pulse 80 06/24/18 07:35 Resp 18 06/24/18 09:26 BP 152/63 06/24/18 07:35 Pulse Ox 96 06/24/18 07:35 Intake & Output 06/23/18 06/24/18 06/24/18 18:59 06:59 18:59 Intake Total 2030 960 720 Output Total 900 1400 Balance 1130 -440 720 Intake: Oral 2029 960 720 Output: Urine 900 1400 Other: # Bowel Movements 2 1 Estimated Stool Amount Medium Medium Laboratory Results - last 24 hr 06/24/18 06/24/18 06/24/18 04:58 04:58 04:58 WBC 8.2 RBC 4.54 Hgb 12.7 L Hct 39 L MCV 86 MCH 28 MCHC 33 RDW 15 Plt Count 205 MPV 7.2 L Neut % (Auto) 56.3 Lymph % (Auto) 30.3 [place] % (Auto) 9.1 Eos % (Auto) 3.3 Baso % (Auto) 1.0 Absolute Neuts (auto) 4.6 Absolute Lymphs (auto) 2.5 Absolute Monos (auto) 0.7 Absolute Eos (auto) 0.3 Absolute Basos (auto) 0.1 Absolute Nucleated RBC 0 Nucleated RBC % 0 INR (Anticoag Therapy) 1.33 H C-Reactive Protein 19.49 H Right hip still painful with passive ROM R knee sensation diminished RLE distally as per baseline able to DF right ankle labs continue to trend down, CRP down to 19 Assessment: []Right hip pain, likely contusion Plan: []Scheduled for injection right hip under fluoro in I.R after [address] Garcia. Continue to monitor for improvement.
[2018-06-24] MEDS ORDERED: Bupivacaine 0.5% SDV PF* 30ML VIAL ONE (15:46)
[2018-06-24] MEDS ORDERED: methylPREDNISolone ACETATE 80* 80 MG/ML 1 ML VIAL ONE (15:46)
[2018-06-24] MEDS: Warfarin TAB(*) 10 MG PO SCH (18:02)
[2018-06-24] MEDS: Cyclobenzaprine TAB* 10 MG PO PRN (20:57)
[2018-06-24] MEDS: Nicotine Patch Removal NOTE PATCH OFF SCH (20:59)
[2018-06-24] MEDS: PRAVASTATIN 10 MG PO SCH (21:07)
[2018-06-25] MEDS: Gabapentin CAP(*) 300 MG PO SCH ×5 (05:58→21:18)
[2018-06-25] MEDS: Heparin VIAL(*) 5000 UNITS/ML VIAL (FIVE THOUSAND) SUBCUT SCH ×3 (05:58→21:18)
[2018-06-25] MEDS: Lisinopril TAB* 10 MG PO SCH (08:31)
[2018-06-25] MEDS: Cyclobenzaprine TAB* 10 MG PO PRN ×2 (08:31→21:18)
[2018-06-25] MEDS: Nicotine PATCH 21 MG/24 HR* PATCH TRANSDERM SCH (08:32)
[2018-06-25] MEDS: Nystatin TOP POWDER* 15 GM BTL TOPICAL SCH ×3 (08:38→21:20)
[2018-06-25 10:33] LABS: INR 1.53 (0.77-1.02)
--- NOTE | 2018-06-25 15:53 | PN ---
Progress Note - Progress Note Date of Service: 06/25/18 SOAP: Subjective: Pt was seen today and re-evaluated for right hip pain. States that pain is gradually improving. Injection was helpful. Awaiting d/c to [facility], however developed diarrhea and further w/u for that was felt necessary. Denies CP/SOB, calf pain Objective: Vitals: Temp Pulse Resp BP Pulse Ox 97.4 F 82 18 163/67 94 06/25/18 12:04 06/25/18 12:04 06/25/18 15:13 06/25/18 12:04 06/25/18 12:04 Gen: A&)x3, NAD at rest sitting in bed RLE: Able to passively flex and extend, IR/ER right hip with less pain. +f/e at ankle and MTPs, N/V intact Assessment: Right hip pain Plan: Pt with decreasing CRP, pain improving F/u with orthopedics on d/c as needed
[2018-06-25] MEDS: Warfarin TAB(*) 10 MG PO SCH (18:31)
[2018-06-25] MEDS: PRAVASTATIN 10 MG PO SCH (21:18)
[2018-06-25] MEDS: Nicotine Patch Removal NOTE PATCH OFF SCH (21:38)
[2018-06-26] MEDS: Heparin VIAL(*) 5000 UNITS/ML VIAL (FIVE THOUSAND) SUBCUT SCH ×2 (05:51→13:24)
[2018-06-26] MEDS: Gabapentin CAP(*) 300 MG PO SCH ×3 (05:51→13:23)
[2018-06-26 06:42] LABS: ABS Basophils 0 10^3/ul (0-0.2); ABS Eosinophils 0.1 10^3/ul (0-0.6); ABS Lymphocytes 2.6 10^3/ul (1.0-4.8); ABS Monocytes 0.9 10^3/ul (0-0.8); ABS Neutrophils 7.6 10^3/ul (1.5-7.7); ABS Nucleated RBC 0 10^3/ul; Eosinophil % 0.8 %; Hematocrit 41 % (42-52); Hemoglobin 13.5 g/dl (14.0-18.0); Lymphocyte % 23.5 %; Mean Corpuscular HGB Conc 33 g/dl (31-36); Mean Corpuscular Hemoglobin 28 pg (27-31); Mean Corpuscular Volume 85 fL (80-94); Mean Platelet Volume 7.2 fL (7.4-10.4); Nucleated Red Blood Cells % 0; Platelet Count 214 10^3/ul (150-450); Red Blood Count 4.85 10^6/ul (4.00-5.40); Red Cell Distribution Width 15 % (10.5-15); White Blood Count 11.2 10^3/ul (3.5-10.8)
[2018-06-26 06:44] LABS: INR 1.76 (0.77-1.02)
[2018-06-26 06:57] LABS: BUN/Creatinine Ratio 28.1 (8-20); C Reactive Protein 11.88 mg/L (<8.01); Calcium 9.4 mg/dL (8.6-10.3); EGFR African American 151.4 (>60); EGFR Non-African American 125.1 (>60); Potassium 4.6 mmol/L (3.5-5.0)
[2018-06-26 08:03] VITALS: BP 152/71
[2018-06-26] MEDS: Lisinopril TAB* 10 MG PO SCH (08:12)
[2018-06-26] MEDS: Nicotine PATCH 21 MG/24 HR* PATCH TRANSDERM SCH (08:13)
[2018-06-26] MEDS: Nystatin TOP POWDER* 15 GM BTL TOPICAL SCH ×2 (08:13→13:35)
[2018-06-26 11:35] LABS: Vitamin D Total 25(OH) 11.3 ng/mL (20-50)
--- NOTE | 2018-06-26 13:11 | TRS ---
TRANSFER SUMMARY: DATE OF ADMISSION: 06/17/18. DATE OF TRANSFER: 06/26/18. TRANSFER DIAGNOSES: 1. Right hip pain likely due to contusion of the right hip with underlying severe degenerative osteoarthritis. 2. Elevated CRP, etiology uncertain, resolved. . 3. Supratherapeutic INR, resolved. . 4. Morbid obesity. 5. Urinary incontinence. 6. History of deep venous thrombosis and pulmonary emboli. 7. Hypertension. 8. Hyperlipidemia. 9. Diarrhea, resolved. 10. [place] insufficiency of the lower extremities. 11. Nicotine abuse due to chewing tobacco. 12. Gas in the right distal iliopsoas muscle, etiology possibly due to injury. 13. Ankylosis of the thoracic spine. 14. Nonalcoholic steatohepatitis. 15. History of colonic polyps. 16. Recent upper respiratory infection. 17. Abrasion of right buttock. 18. History of leukoplakia of the mouth. 19. History of impaired fasting glucose. 20. Vitamin D deficiency. 21. History of tinea unguium. HISTORY: Chong Doherty is a 68-year-old man admitted with severe hip pain after having fallen. Please see the dictated admission note for details of the present illness, past medical history, family history, social and personal history, review of systems, and physical examination. LABORATORY DATA: CBC on admission WBC 10.5, H and H 13.0/39, PLT 205,000. ESR of 38. H and H remained relatively stable throughout his hospitalization. CBC prior to discharge on 06/26/18, WBC 11.2, H and H 13.5/41, MCV 85, PLT 214,000. INR on admission 5.49; on 06/18/18, 6.36; 06/19/18, 3.25; 06/21/18, 1.51; , repeat 1.36; PTT 38.3, on 06/22/18, 1.23; 06/23/18, 1.19; 06/24/18, 1.33 ; 06/25/18, 1.53; 06/26/18, 1.76. Chemistries on admission: Sodium 132, potassium 4.3, chloride 97, CO2 of 29, BUN and creatinine 13/0.69, glucose 99. Rest of the comprehensive metabolic panel was within normal limits except for AST 46. BMP prior to discharge on 08/09, sodium 133, potassium 4.6, chloride 97, CO2 of 28, BUN and creatinine 18/ 0.64, glucose 113, calcium 9.4. CRP started at 06/05/18 was 0.34; 06/17/18 was up to 17.52 and on 06/18/18 was down to 11.88 by the time of discharge. CK on admission was 688. Urinalysis on 06/18/18, yellow, clear, specific gravity 1.021 , pH 5, dipstick is positive for ketones trace, blood 1+, wbc's trace, rbc's trace, epithelial cells present. Serology influenza A and B were negative. Urine culture was no growth. Stool for C. diff was not done on 06/25/18 because it was solid. Blood cultures x2 were no growth. IMAGING: Chest x-rays on 06/17/18 and 06/22/18 were no acute disease. Hip/ pelvis x-ray on 06/17/18, showed severe degenerative joint disease of the right hip. Pelvis CT on 06/17/18, showed gas in the iliopsoas muscle, right hip arthritis. Abdomen pelvis CT 06/17/18 showed lower lobe atelectasis, T-spine ankylosis, right hip severe and left hip moderate DJD, right iliopsoas tendon sheath and musculotendinous junction, gas felt to be vacuum phenomena from the right hip joint. Brain CT was negative except for minimal chronic ischemic changes on 06/17/18. Knee x-rays on 06/18/18 showed DJD with chondrocalcinosis right as just stated no fracture. Soft tissue ultrasound on 06/18/18, right hip showed no effusion. Nuclear medicine bone scan on 06/21/18, showed increased uptake in the right hip, felt to be due to arthritis, infection less likely. EKG on 06/21/18 showed sinus tachycardia, otherwise was normal. CONSULTATION: Consultation with Orthopedics, Dr. Lopez, saw him multiple times , felt initially that he had a possible infection, possible fracture, but subsequently felt that he had the contusion of the right hip since the studies were negative for fracture and infection. PROCEDURE: Hip aspiration injection on 06/24/18: Right was injected by Dr. Garcia with 80 mg Depo-Medrol, 3 mL 1% lidocaine and 2 mL 0.5% Marcaine. HOSPITAL COURSE: The patient was evaluated in the emergency room and from there admitted to the floor. He was initially started on IV antibiotics with piperacillin and tazobactam. When it was felt that he did not have infection, this was stopped. His warfarin was held because of the elevated INR. He was restarted on gabapentin. He was given nicotine patches to help with nicotine withdrawal because he chews more than 3 cans of chewing tobacco per week. He had an open area on his right buttock, which was evaluated by the wound clinic, they recommended barrier cream. He was ordered MiraLAX for constipation. He had some diarrhea on 06/25/18. This [facility]. It did not occur again. When his INR came down his warfarin was restarted. He was treated with subcutaneous heparin for DVT prophylaxis while the INR was subtherapeutic. It was felt that it might have been high due to the fact that he was not eating much the days prior to admission. He complained of right rib cage tenderness. It is felt that he might have injured his right ribcage in the fall. He had tachycardia on 06/21/18. EKG showed a sinus tachycardia. He received a flu-shot while he was in the hospital. When it became clear that his hip pain was not due to infection or fracture, it was felt that he should have a corticosteroid injection to see if the pain would improve. This was done 06/24/18. He did notice some improvement after that. Because of his immobility, it was felt that he could not go home. He will be going to [facility] facility in [place] for rehabilitation.It should be noticed that he did have a Neal catheter placed in the emergency room because of his immobility, hip pain. This was removed after a few days. DISCHARGE MEDICATIONS: At the time of discharge, medications are as follows: 1. Pravastatin 10 mg daily. 2. Lisinopril 20 mg daily. 3. Warfarin 10 mg daily or as directed. 4. Gabapentin 600 mg 5 times a day. 5. Vitamin D 2000 units daily. 6. MiraLAX 17 g twice a day as needed. 7. Nystatin topical powder underneath the skin folds. 8. Nicotine patch 42 mg daily. DISCHARGE INSTRUCTIONS: Of note, the patient did get a flu-shot when he was in the hospital. He should have an INR checked in 1 or 2 days. He should follow up with me after he is discharged [facility] the [facility]. He should be getting physical and occupational therapy. Diet should be calorie controlled and his obesity should be addressed in the penitentiary. If his hip continues to be painful, consideration could be given to a hip replacement. This could not be done at our facility; however, he would have to be referred to a facility that could deal with replacing his hip in somebody his size. Please call me if you have any questions, my phone number [phone]. [id number]/[facility] #: [id number] MTDD
== END 2018-06-26 13:55 | DRG 605 ==
LOC: ED 12:35 → MED 20:04
PROVIDERS: ADMIT Internal Medicine; ATTEND Internal Medicine Geriatric Medicine
DX: S70.01XA Contusion of right hip, initial encounter (principal); Z68.41 Body mass index [BMI] 40.0-44.9, adult; I83.218 Varicose veins of right lower extremity with both ulcer of other part of lower extremity and inflammation; I83.228 Varicose veins of left lower extremity with both ulcer of other part of lower extremity and inflammation; L97.819 Non-pressure chronic ulcer of other part of right lower leg with unspecified severity; L97.829 Non-pressure chronic ulcer of other part of left lower leg with unspecified severity; W17.89XA Other fall from one level to another, initial encounter; M16.11 Unilateral primary osteoarthritis, right hip; R79.1 Abnormal coagulation profile; E66.01 Morbid (severe) obesity due to excess calories; R32 Unspecified urinary incontinence; I10 Essential (primary) hypertension; E78.5 Hyperlipidemia, unspecified; M25.551 Pain in right hip; R19.7 Diarrhea, unspecified; I83.12 Varicose veins of left lower extremity with inflammation; I83.11 Varicose veins of right lower extremity with inflammation; F17.220 Nicotine dependence, chewing tobacco, uncomplicated; M43.24 Fusion of spine, thoracic region; K75.81 Nonalcoholic steatohepatitis (NASH); S30.810A Abrasion of lower back and pelvis, initial encounter; Y92.9 Unspecified place or not applicable; R73.01 Impaired fasting glucose; E55.9 Vitamin D deficiency, unspecified; Z86.718 Personal history of other venous thrombosis and embolism; Z79.01 Long term (current) use of anticoagulants; Z86.711 Personal history of pulmonary embolism; Z79.899 Other long term (current) drug therapy; Z91.048 Other nonmedicinal substance allergy status; Z80.0 Family history of malignant neoplasm of digestive organs; Z80.42 Family history of malignant neoplasm of prostate
CPT/HCPCS: 20610; 36415; 70450; 71045; 71046; 72192; 74177; 77002; 78315; 80048; 80053; 81003; 81015; 82306; 82550; 82565; 82607; 83036; 84520; 84550; 85014; 85018; 85025; 85027; 85610; 85652; 85730; 86140; 87040; 87086; 93005; 99284; A9270-GY; A9503; G8978-GP-CL; G8979-GP-CJ; G8987-GO-CM; G8988-GO-CI; J1040; J1644; J2060; J2270; J2543; Q9965; Q9967

== ENCOUNTER 2018-12-01 20:05 | Inpatient (IN) | payer MEDICARE, OTHER ==
[2018-12-01 20:46] LABS: Hematocrit 38 % (42-52); Hemoglobin 13.1 g/dL (14.0-18.0); Mean Corpuscular HGB Conc 34 g/dL (31-36); Mean Corpuscular Hemoglobin 28 pg (27-31); Mean Corpuscular Volume 83 fL (80-94); Mean Platelet Volume 7.7 fL (7.4-10.4); Platelet Count 216 10^3/uL (150-450); Red Blood Count 4.62 10^6 /uL (4.18-5.48); Red Cell Distribution Width 14 % (10-15); White Blood Count 11.2 10^3/uL (3.5-10.8)
[2018-12-01] MEDS ORDERED: Vancomycin(*) 1,250 MG in NS 0.9% 250 ML* 250 ML IVPB ONE (21:12)
--- NOTE | 2018-12-01 21:12 | ED ---
Lower Extremity - HPI Summary HPI Summary: The patient is a 68 y/o M presenting to [facility] with a chief complaint of gradual onset increasing edema and erythema in the BLE worsening throughout this past week. He reports that he's had previous difficulty with edema in the BLE as well as circulatory difficulties. The newer onset increase in swelling and redness is located from the feet to the shins. He denies weeping, but notes there has been minimal bleeding occasionally. There is pain the RUE. He also denies fever, chills, erythema of eyes, sore throat, CP, SOB, cough, abdominal pain, N/V, dysuria, hematuria, myalgia, edema, rash, or dizziness. Overall, his pain is rated 7/10 in severity. Hx of DVT, embolism, HLD, HTN, peripheral vascular disease. Surgical hx of bilateral knee surgeries, vein removal from posterior left leg. FHx of cellulitis. Former cigarette smoker, no EtOH, marijuana use. He notes he last saw his PCP Dr. Locke in July 2018. - History of Current Complaint Chief Complaint: EDExtremityLower Stated Complaint: SWOLLEN FT PER EMS Time Seen by Provider: 12/01/18 20:18 Hx Obtained From: Patient Mechanism Of Injury: Unknown Onset of Pain: Days Onset/Duration: Days Severity Initially: Moderate Severity Currently: Severe Pain Intensity: 7 Pain Scale Used: 0-10 Numeric Timing: Constant, Lasting Days Location: Is Discrete @ - BLE at the feet extending to the shins Character Of Pain: Aching Associated Signs And Symptoms: Positive: Swelling, Redness, Other - POSITIVE: pain in the RUE; NEGATIVE: chills, erythema of eyes, sore throat, CP, SOB, cough , N/V, dysuria, hematuria, myalgia, edema, rash. Negative: Fever, Dizziness, Abdominal Pain Aggravating Factor(s): Nothing Alleviating Factor(s): Nothing - Allergies/Home Medications Allergies/Adverse Reactions: Allergies Allergy/AdvReac Type Severity Reaction Status Date / Time No Known Allergies Allergy Verified 12/01/18 20:24 PMH/Surg Hx/FS Hx/Imm Hx Endocrine/Hematology History: Reports: Hx Anticoagulant Therapy Denies: Hx Diabetes Cardiovascular History: Reports: Hx Deep Vein Thrombosis, Hx Embolism, Hx Hypercholesterolemia, Hx Hypertension, Hx Peripheral Vascular Disease Denies: Hx Pacemaker/ICD Respiratory History: Denies: Hx Asthma History: Denies: Hx Dialysis, Hx Renal Disease Musculoskeletal History: Reports: Hx Arthritis - hips and knees Denies: Hx Back Problems Sensory History: Reports: Hx Contacts or Glasses Denies: Hx Hearing Aid Opthamlomology History: Reports: Hx Contacts or Glasses Psychiatric History: Denies: Hx Panic Disorder - Surgical History Surgery Procedure, Year, and Place: BILATERAL KNEE SURGERIES; DENTAL SURGERIES; VEIN REMOVED FROM BACK OF LEFT LEG; Hx Anesthesia Reactions: No Infectious Disease History: No Infectious Disease History: Denies: Traveled Outside the [place] in Last 30 Days - Family History Known Family History: Positive: Other - hx of cellulitis in family - Social History Alcohol Use: None Hx Substance Use: Yes Substance Use Type: Reports: Marijuana Substance Use Comment - Amount & Last Used: marijuana helps with pain. Hx Tobacco Use: Yes Smoking Status (MU): Former Smoker Type: Cigarettes Review of Systems Negative: Fever, Chills Negative: Erythema Negative: Sore Throat Negative: Chest Pain Negative: Shortness Of Breath, Cough Negative: Abdominal Pain, Vomiting, Nausea Negative: dysuria, hematuria Positive: Myalgia - pain the BLE secondary to edema, pain in RUE, Edema - in BLE at feet up to shins Positive: Other - erythema of BLE at feet up to shins, occasional bleeding; NEGATIVE: weeping. Negative: Rash Neurological: Other - NEGATIVE: dizziness All Other Systems Reviewed And Are Negative: Yes Physical Exam - Summary Physical Exam Summary: Constitutional: Well-developed, Well-nourished, Alert. (-) Distressed Skin: BLE are erythematous and hot below the shins, On the LLE there's declamation of skin HENT: Normocephalic; Atraumatic Eyes: Conjunctiva normal Neck: Musculoskeletal ROM normal neck. (-) JVD, (-) Stridor, (-) Tracheal deviation Cardio: Rhythm regular, rate normal, Heart sounds normal; Intact distal pulses; The pedal pulses are 2+ and symmetric. Radial pulses are 2+ and symmetric. (-) Murmur Pulmonary/Chest wall: Effort normal. (-) Respiratory distress, (-) Wheezes, (-) Rales Abd: Soft, (-) tenderness, (-) Distension, (-) Guarding, (-) Rebound Musculoskeletal: (+) Peripheral edema but compartments are soft, No significant pain with passive and active movement of the BLE Lymph: (-) Cervical adenopathy Neuro: Alert, Oriented x3 Psych: Mood and affect Normal Triage Information Reviewed: Yes Vital Signs On Initial Exam: Initial Vitals Temp Pulse Resp BP Pulse Ox 97.7 F 92 17 122/76 98 12/01/18 20:11 12/01/18 20:11 12/01/18 20:11 12/01/18 20:11 12/01/18 20:11 Vital Signs Reviewed: Yes Diagnostics - Vital Signs Vital Signs Temp Pulse Resp BP Pulse Ox 12/01/18 20:19 94 102/66 99 12/01/18 20:18 93 99 12/01/18 20:11 97.7 F 92 17 122/76 98 - Laboratory Lab Results: Lab Results 12/01/18 12/01/18 Range/Units 20:33 20:33 WBC 11.2 H (3.5-10.8) 10^3/uL RBC 4.62 (4.18-5.48) 10^6 /uL Hgb 13.1 L (14.0-18.0) g/dL Hct 38 L (42-52) % MCV 83 (80-94) fL MCH 28 (27-31) pg MCHC 34 (31-36) g/dL RDW 14 (10-15) % Plt Count 216 (150-450) 10^3/uL MPV 7.7 (7.4-10.4) fL B-Natriuretic Peptide 21 (<=100) pg/mL Result Diagrams: 12/01/18 20:33 12/01/18 20:33 Lab Statement: Any lab studies that have been ordered have been reviewed, and results considered in the medical decision making process. - EKG 2114 Cardiac Rate: NL - 85 BPM EKG Rhythm: Sinus Rhythm Summary of EKG Findings: NSR of 85 BPM, No STEMI Lower Extremity Course/Dx - Course Course Of Treatment: The patient is a 68 y/o M presenting to [facility] with a chief complaint of gradual onset increasing edema and erythema in the BLE at the feet to the shins worsening throughout this past week. He denies weeping, but notes there has been minimal bleeding occasionally. There is pain the RUE. He also denies fever, chills, erythema of eyes, sore throat, CP, SOB, cough, abdominal pain, N/V, dysuria, hematuria, myalgia, edema, rash, or dizziness. Hx of DVT, embolism, HLD, HTN, peripheral vascular disease. Surgical hx of bilateral knee surgeries, vein removal from posterior left leg. FHx of cellulitis. Upon physical exam, the patient exhibits BLE with erythema and hotness below the shins, declamation of skin on the LLE, peripheral edema but compartments are soft, no significant pain with passive and active movement of the BLE. In the ED course, the patient was administered NS and Vancomycin HCl. Blood work reveals WBC of 11.3, hgb of 13.1, hct of 38, sodium of 134, chloride of 98, glucose of 111, CRP of 93.82. EKG reveals NSR at 85 BPM, no STEMI. At 2149, I discussed the patient's case with Dr. Triplett, and he accepts the patient for admission. Patient agrees with this plan. He is diagnosed with leg cellulitis and peripheral edema. - Diagnoses Provider Diagnoses: Cellulitis, leg, Peripheral edema - Physician Notifications Discussed Care Of Patient With: Agusto Triplett - hospitalist Time Discussed With Above Provider: 21:50 Instructed by Provider To: Admit As Inpatient - I spoke with Dr. Triplett concerning the patient's case. He accepts the patient for admission. Discharge - Sign-Out/Discharge Documenting (check all that apply): Patient Departure - Patient [place] [facility] [place] Patient Received Moderate/Deep Sedation with Procedure: No - Discharge Plan Condition: Stable Disposition: ADMITTED TO [facility] Referrals: Lucia Locke MD [Primary Care Provider] - - Billing Disposition and Condition Condition: STABLE Disposition: Admitted to [facility] - Attestation Statements Document Initiated by Scribe: Yes Documenting Scribe: Rosie Stone Provider For Whom Mikeibe is Documenting (Include Credential): Dr. Ze Mancia MD Scribe Attestation: Rosie Salamanca scribed for Dr. Ze Mancia MD on 12/01/18 at 2152. Status of Scribe Document: Ready
[2018-12-01 21:18] LABS: Albumin/Globulin Ratio 1.1 (1-3); BUN/Creatinine Ratio 19.8 (8-20); C Reactive Protein 93.82 mg/L (<8.01); Calcium 9.6 mg/dL (8.6-10.3); EGFR African American 94.8 (>60); EGFR Non-African American 78.4 (>60); Globulin 3.5 g/dL (2-4); Potassium 4.3 mmol/L (3.5-5.0); Total Protein 7.5 g/dL (6.4-8.9)
[2018-12-01 21:28] LABS: Troponin I 0.03 ng/mL (<0.04)
[2018-12-01] MEDS ORDERED: NS 0.9% 250 ML* 250 ML ONE (21:29)
[2018-12-01 21:32] LABS: Activated Partial Thrombo Time 50.4 seconds (26.0-38.0); INR 2.79 (0.82-1.09)
[2018-12-01] MEDS ORDERED: Polyethylene Glycol 3350* 17 GM PACKET PO PRN (23:14)
[2018-12-01] MEDS ORDERED: Warfarin TAB(*) 10 MG PO SCH (23:45)
[2018-12-01] MEDS ORDERED: Vancomycin(*) 0 MG in NS 0.9% 250 ML* 250 ML IVPB SCH ×4 (23:45)
[2018-12-02] MEDS ORDERED: Vancomycin 1500 MG IV - x ONCE IVPB ONE ×2
[2018-12-02] MEDS ORDERED: Vancomycin per Pharmacy* NOTE FOLLOW UP PRN (00:20)
[2018-12-02] MEDS: Cefepime 2 GM in Dextrose(*) 2 GM/50 ML BAG IV SCH ×2 (00:46→11:55)
[2018-12-02] MEDS: Pantoprazole* 80 mg IN NS 80 MG/250 ML BAG IV SCH ×2 (02:47→14:15)
[2018-12-02] MEDS: Gabapentin CAP(*) 300 MG PO SCH ×5 (05:24→22:15)
[2018-12-02] MEDS: Vancomycin(*) 1,000 MG in NS 0.9% 250 ML* 250 ML IVPB SCH ×3 (05:24→17:24)
[2018-12-02 08:15] LABS: ABS Eosinophils 0.2 10^3/ul (0-0.6); ABS Lymphocytes 1.6 10^3/ul (1.0-4.8); ABS Monocytes 0.9 10^3/ul (0-0.8); ABS Neutrophils 6.8 10^3/ul (1.5-7.7); Eosinophil % 1.7 %; Hematocrit 35 % (42-52); Hemoglobin 11.8 g/dL (14.0-18.0); Lymphocyte % 16.4 %; Mean Corpuscular HGB Conc 34 g/dL (31-36); Mean Corpuscular Hemoglobin 28 pg (27-31); Mean Corpuscular Volume 84 fL (80-94); Mean Platelet Volume 7.6 fL (7.4-10.4); Platelet Count 172 10^3/uL (150-450); Red Blood Count 4.19 10^6 /uL (4.18-5.48); Red Cell Distribution Width 14 % (10-15); White Blood Count 9.5 10^3/uL (3.5-10.8)
[2018-12-02 08:28] LABS: INR 2.87 (0.82-1.09)
[2018-12-02 08:44] LABS: EGFR African American 176.6 (>60); Potassium 3.6 mmol/L (3.5-5.0)
[2018-12-02] MEDS ORDERED: Pravastatin (NF) 10 MG TAB PO SCH (09:00)
[2018-12-02] MEDS: Nystatin TOP POWDER* 15 GM BTL TOPICAL SCH ×3 (09:50→22:15)
[2018-12-02] MEDS: Lisinopril TAB* 10 MG PO SCH (10:18)
--- NOTE | 2018-12-02 10:58 | HP ---
CC: Dr. Lucia Locke * HISTORY AND PHYSICAL: DATE OF ADMISSION: 12/02/18 CHIEF COMPLAINT: Left lower extremity pain. HISTORY OF PRESENT ILLNESS: Mr. Doherty is a 68-year-old man with morbid obesity and chronic venous stasis in his both legs who came to the emergency department this evening complaining of severe pain in his left lower extremity. He says the pain reminded him of past events where he had DVT. The patient denies any fevers, but he rates the pain at 8/10. The patient lives alone and has a visiting nurse. He is a poor historian. He does report that he was given oral antibiotics for cellulitis in the left lower extremity about a month ago, which seemed to be helpful. His last admission was to this hospital on 06/17/18 , where he was also treated for hip pain after a fall and possible infection in the hip area. He was discharged to an acute rehabilitation facility. The patient is not sure how long he was there before he went home. PAST MEDICAL HISTORY: Morbid obesity, chronic venous stasis with ulceration of both legs, DVT and PE in the past, nonalcoholic steatohepatitis, colon polyps, osteoarthritis, hypertension, hyperlipidemia. PAST SURGICAL HISTORY: Bilateral knee surgery as a young man, vein stripping of legs, and tonsillectomy. MEDICATIONS: On admission are: 1. Pravastatin 10 mg p.o. at bedtime. 2. Warfarin 10 mg p.o. daily. 3. Gabapentin 600 mg p.o. 5 times a day. 4. Lisinopril 20 mg p.o. daily. 5. Nystatin powder to affected areas twice a day. 6. MiraLAX 17 g mixed with water twice a day p.r.n. for constipation. ALLERGIES: None. SOCIAL HISTORY: He is disabled, worked as a parking lot laborer in the past. He is from his . He has no children. He does have stepchildren. His healthcare proxy would be Lisbet Mir, who is a friend, but there is nothing on paper about this. He smoked tobacco, quit years and years ago, he says. No alcohol use. He uses marijuana occasionally. FAMILY HISTORY: Notable for sister who of infectious complications. Mother had colon cancer. Father had prostate cancer. REVIEW OF SYSTEMS: The patient denies any fevers, weight loss, anorexia. The patient denies any chest pain or palpitations. The patient denies any shortness of breath and cough. The patient does report a right hand tremor and some tingling in the right hand occasionally off and on. Remainder of the 14- point review of systems is negative, other than mentioned in the HPI. PHYSICAL EXAMINATION GENERAL: He is an older overweight man, in no acute distress. VITAL SIGNS: Temperature is 36.5, pulse 94, respirations 17, blood pressure 102 /66, and O2 sat was 99%. HEENT: Head is normocephalic, atraumatic. Sclerae anicteric. Pupils equal, round, and reactive to light and accommodation. Oropharynx with poor dentition and few teeth left. NECK: No adenopathy, no thyromegaly, no carotid bruit. LUNGS: Clear to auscultation and percussion bilaterally. HEART: Regular rate and rhythm without murmurs or gallops. ABDOMEN: Obese, soft, nontender. Positive bowel sounds. No hepatosplenomegaly. EXTREMITIES: There are bilateral lower extremity chronic venous stasis changes with some superficial ulcerations. There is more deep red erythema on the left foot dorsum and ankle with tenderness and worsened edema. Dorsalis pedis pulses are absent bilaterally. NEUROLOGIC: He is alert and oriented x3. Cranial nerves II through XII are intact. There is a resting tremor in the right arm and some cogwheeling on the right side. He appears depressed. LABORATORY DATA: Sodium 134, potassium 4.3, chloride 98, bicarb 28, BUN 19, creatinine 0.98, glucose 111. AST 21, ALT 11. PTT 50.4, INR 2.79. White count 11.2, hemoglobin 13.1, hematocrit 38%, platelets are 216. BNP 21. Troponin 0.03. CRP 93.8. ASSESSMENT AND PLAN: A 68-year-old man with left lower extremity cellulitis as a complication of chronic venous stasis problems in both legs. Evidence for infection would include elevated white count, elevated CRP, redness and pain out of proportion to either side. The patient will be started on vancomycin and cefepime. He will have left lower extremity elevated. Dr. Locke will be contacted and she can take over the case tomorrow. Meanwhile, for his history of DVT and pulmonary embolism, we will continue him on his warfarin and monitor INR closely given the antibiotic use. For this resting tremor, I do suspect he may have an element of Parkinson disease. Dr. Locke can consider a neurology consult while he is here in the hospital. To rule out DVT, we will have a lower extremity Doppler arranged in the morning. Code status is full. [id number]/[facility] #: [id number] MTDD
[2018-12-02] MEDS ORDERED: Warfarin TAB(*) 10 MG PO SCH (17:00)
[2018-12-02] MEDS: CMCS: Pravastatin (NF) 20 MG TAB PO SCH (17:24)
[2018-12-03] MEDS: Cefepime 2 GM in Dextrose(*) 2 GM/50 ML BAG IV SCH ×2 (01:28→12:30)
[2018-12-03] MEDS: Vancomycin(*) 1,000 MG in NS 0.9% 250 ML* 250 ML IVPB SCH ×4 (02:35→20:56)
[2018-12-03] MEDS ORDERED: Vancomycin Trough Check NOTE FOLLOW UP ONE (06:00)
[2018-12-03] MEDS: Gabapentin CAP(*) 300 MG PO SCH ×5 (06:47→20:57)
[2018-12-03 06:54] LABS: INR 2.95 (0.82-1.09)
[2018-12-03] MEDS: Lisinopril TAB* 10 MG PO SCH (10:53)
[2018-12-03] MEDS: Nystatin TOP POWDER* 15 GM BTL TOPICAL SCH ×3 (10:54→20:58)
[2018-12-03] MEDS ORDERED: Warfarin TAB(*) 3 MG PO SCH (17:00)
[2018-12-03] MEDS ORDERED: Warfarin TAB(*) 4 MG PO SCH (17:00)
[2018-12-03] MEDS: CMCS: Pravastatin (NF) 20 MG TAB PO SCH (18:09)
[2018-12-03] MEDS: Acetaminophen TAB* 325 MG PO PRN (20:57)
[2018-12-04] MEDS: Cefepime 2 GM in Dextrose(*) 2 GM/50 ML BAG IV SCH ×2 (00:07→11:45)
[2018-12-04] MEDS: Vancomycin(*) 1,000 MG in NS 0.9% 250 ML* 250 ML IVPB SCH ×4 (03:03→21:48)
[2018-12-04] MEDS: Gabapentin CAP(*) 300 MG PO SCH ×5 (05:56→21:48)
[2018-12-04 06:18] LABS: ABS Eosinophils 0.3 10^3/ul (0-0.6); ABS Lymphocytes 1.7 10^3/ul (1.0-4.8); ABS Monocytes 0.9 10^3/ul (0-0.8); ABS Neutrophils 5.7 10^3/ul (1.5-7.7); Hematocrit 35 % (42-52); Hemoglobin 12.1 g/dL (14.0-18.0); Lymphocyte % 19.9 %; Mean Corpuscular HGB Conc 34 g/dL (31-36); Mean Corpuscular Hemoglobin 29 pg (27-31); Mean Corpuscular Volume 84 fL (80-94); Mean Platelet Volume 7.5 fL (7.4-10.4); Nucleated Red Blood Cells % 0.1; Platelet Count 167 10^3/uL (150-450); Red Blood Count 4.21 10^6 /uL (4.18-5.48); Red Cell Distribution Width 14 % (10-15); White Blood Count 8.6 10^3/uL (3.5-10.8)
[2018-12-04 06:30] LABS: INR 3.15 (0.82-1.09)
[2018-12-04 07:01] LABS: BUN/Creatinine Ratio 15.5 (8-20); C Reactive Protein 128.68 mg/L (<8.01); Calcium 8.4 mg/dL (8.6-10.3); EGFR African American 169.6 (>60); EGFR Non-African American 140.2 (>60); Potassium 3.9 mmol/L (3.5-5.0)
[2018-12-04] MEDS: Acetaminophen TAB* 325 MG PO PRN ×2 (08:49→15:36)
[2018-12-04] MEDS: Lisinopril TAB* 10 MG PO SCH (08:51)
[2018-12-04] MEDS: Nystatin TOP POWDER* 15 GM BTL TOPICAL SCH ×3 (11:44→21:51)
[2018-12-04] MEDS: CMCS: Pravastatin (NF) 20 MG TAB PO SCH (17:57)
[2018-12-05] MEDS: Cefepime 2 GM in Dextrose(*) 2 GM/50 ML BAG IV SCH ×2 (00:21→11:58)
[2018-12-05] MEDS: Vancomycin(*) 1,000 MG in NS 0.9% 250 ML* 250 ML IVPB SCH ×4 (04:08→22:24)
[2018-12-05] MEDS: Gabapentin CAP(*) 300 MG PO SCH ×5 (05:43→22:31)
[2018-12-05 06:04] LABS: INR 2.88 (0.82-1.09)
[2018-12-05 06:20] LABS: EGFR African American 176.6 (>60)
[2018-12-05] MEDS ORDERED: Vancomycin Trough Check NOTE FOLLOW UP ONE (08:30)
[2018-12-05] MEDS: Lisinopril TAB* 10 MG PO SCH (09:38)
[2018-12-05] MEDS: Nystatin TOP POWDER* 15 GM BTL TOPICAL SCH ×3 (10:55→22:37)
[2018-12-05] MEDS: CMCS: Pravastatin (NF) 20 MG TAB PO SCH (18:19)
[2018-12-06] MEDS: Cefepime 2 GM in Dextrose(*) 2 GM/50 ML BAG IV SCH ×3 (00:37→23:23)
[2018-12-06] MEDS: Vancomycin(*) 1,000 MG in NS 0.9% 250 ML* 250 ML IVPB SCH ×4 (03:34→20:01)
[2018-12-06] MEDS: Gabapentin CAP(*) 300 MG PO SCH ×5 (06:48→21:24)
[2018-12-06] MEDS: Lisinopril TAB* 10 MG PO SCH (08:47)
[2018-12-06] MEDS: Nystatin TOP POWDER* 15 GM BTL TOPICAL SCH ×3 (08:51→20:05)
[2018-12-06] MEDS ORDERED: Warfarin TAB(*) 7.5 MG PO ONE (17:00)
--- NOTE | 2018-12-06 17:02 | CONSULT ---
Subjective Date of Service: 12/06/18 Interval History: Mr. Doherty is a 68 yo male with PMH significant for morbid obesity, chronic venous statis ulcers, DVT/PE, BENTON, arthritis, HTN, and HLD who presented to the emergency room with complaints of left LE pain. During his hospitalization he was noted to have skin breakdown to his coccyx and left buttocks by [facility] [place] staff. Patient seen and examined at bedside. Family History: Unchanged from Admission Social History: Unchanged from Admission Past Medical History: Unchanged from Admission Review of Systems - Measurements Intake and Output: Intake and Output Last 24 Hours 12/04/18 12/05/18 12/06/18 12/07/18 06:59 06:59 06:59 06:59 Intake Total 2740 3495 4243 1070 Output Total 1550 450 Balance 2740 3495 2693 620 Intake: IV Fluids 75 393 NS (0.9%) 43 cefepime 25 100 vanco 50 250 IVPB 580 1100 610 NS (0.9%) 610 cefepime 60 100 vanco 520 1000 Oral 2160 2320 3240 1070 Output: Urine 1550 450 Other: Estimated Void Large Medium Large Date of Last Bowel 574200 [id number] Movement # Bowel Movements 12/03/2018 0 0 Estimated Stool Amount Large Large # Voids 3 4 1 - Review of Systems Constitutional Symptoms: Negative: Fever, Other - Chills Objective Active Medications: Acetaminophen (Tylenol Tab*) 650 mg PO Q6H PRN Reason: TEMP > 101 Gabapentin (Neurontin Cap(*)) 600 mg PO FIVE TIMES DAILY [facility] Cefepime HCl (Maxipime 2 Gm In Dextrose Duplex (*)) 2 gm in 50 mls @ 100 mls/ hr IV Q12H [facility] Vancomycin HCl 1,000 mg/ (Sodium Chloride) 250 mls @ 166.667 mls/hr IVPB 0300, 0900,1500,2100 [facility] Lisinopril (Prinivil Tab*) 20 mg PO DAILY [facility] Nystatin (Nystatin Top Powder*) 1 applic TOPICAL TID [facility] Pharmacy Consult (Vancomycin Per Pharmacy*) 1 note FOLLOW UP . PRN Reason: PER PROTOCOL Pharmacy Profile Note (Vancomycin Trough Check) 1 note FOLLOW UP ONCE ONE Stop: 12/08/18 08:31 Polyethylene Glycol/Electrolytes (Miralax*) 17 gm PO BID PRN Reason: CONSTIPATION Pravastatin Sodium (Pravachol (Nf)) 10 mg PO 1700 [facility] Warfarin Sodium (Coumadin Tab(*)) 7.5 mg PO ONCE@1700 ONE; Protocol Stop: 12/06/18 17:01 Vital Signs 12/06/18 07:15 Temperature 97.4 F Pulse Rate 70 Respiratory 18 Rate Blood Pressure 156/67 (mmHg) Blood Pressure 96 Mean O2 Sat by Pulse 96 Oximetry Patient on Room Yes Air Oxygen Devices in Use Now: None Appearance: NAD, laying in bed Ears/Nose/Mouth/Throat: Mucous Membranes Moist Respiratory: Symmetrical Chest Expansion and Respiratory Effort Skin: - - See skin ote below Neurological: Alert and Oriented x 3 Nutrition: Taking PO's Result Diagrams: 12/07/18 05:39 12/08/18 07:00 Additional Lab and Data: Above labs were pulled into the note when the note was edited prior to signing , see labs from day of consult below. Laboratory Tests 12/01/18 12/04/18 12/04/18 20:33 06:05 06:05 WBC 8.6 Hgb 12.1 L Hct 35 L Plt Count 167 Sodium 135 Potassium 3.9 Chloride 101 Carbon Dioxide 29 BUN 9 Creatinine 0.58 L Glucose 129 H C-Reactive Protein 128.68 H Total Protein 7.5 Albumin 4.0 Skin Deviation Note - Skin Deviation Findings Left buttock - There is a superficial shearing injury over what appears to be scar tissue on the left buttock. The open area measures 1.3 cm x 0.5 cm x 0.2 cm. The wound bed is granulation tissue. There is no drainage. There is no undermining or tunneling present. Assessment/Plan: Mr. Doherty is a 68 yo male with PMH significant for morbid obesity, chronic venous statis ulcers, DVT/PE, BENTON, arthritis, HTN, and HLD who presented to the emergency room with complaints of left LE pain. 1. Superfical open area to left buttock. Suspect this represents a shearing injury over previous scar tissue. Recommend barrier cream to the buttocks. Frequent turning and repositioning. Use a lifting device to move in bed to decrease risk of shearing injury. Consider checking a prealbumin level to evaluate nutrition status. 2. Morbid obesity. BMI ~45. Use lifting device in bed to prevent further shearing injuries. 3. Diet. Heart Healthy diet. 4. Code Status. Full Code Status. 5. Disposition. Inpatient. Disposition per primary medicine team. TIME SPENT: Time for this wound consultation was 20 minutes and 10 minutes was spent with the patient discussing past medical history; assessing, measuring, and photographing the wound. Wound Problem/Plan Is Patient a Wound Clinic Patient: No Attending: Randa Whitmore
[2018-12-06] MEDS: CMCS: Pravastatin (NF) 20 MG TAB PO SCH (17:46)
[2018-12-06] MEDS: Acetaminophen TAB* 325 MG PO PRN (20:12)
[2018-12-07] MEDS: Vancomycin(*) 1,000 MG in NS 0.9% 250 ML* 250 ML IVPB SCH ×4 (03:01→22:19)
[2018-12-07] MEDS: Gabapentin CAP(*) 300 MG PO SCH ×5 (05:21→22:22)
[2018-12-07 05:58] LABS: ABS Basophils 0.1 10^3/ul (0-0.2); ABS Eosinophils 0.4 10^3/ul (0-0.6); ABS Lymphocytes 1.8 10^3/ul (1.0-4.8); ABS Monocytes 0.6 10^3/ul (0-0.8); ABS Neutrophils 3.6 10^3/ul (1.5-7.7); Eosinophil % 5.6 %; Hematocrit 36 % (42-52); Hemoglobin 12.1 g/dL (14.0-18.0); Lymphocyte % 28.4 %; Mean Corpuscular HGB Conc 33 g/dL (31-36); Mean Corpuscular Hemoglobin 28 pg (27-31); Mean Corpuscular Volume 84 fL (80-94); Mean Platelet Volume 7.4 fL (7.4-10.4); Platelet Count 195 10^3/uL (150-450); Red Blood Count 4.32 10^6 /uL (4.18-5.48); Red Cell Distribution Width 14 % (10-15); White Blood Count 6.5 10^3/uL (3.5-10.8)
[2018-12-07 06:02] LABS: INR 1.6 (0.82-1.09)
[2018-12-07 06:12] LABS: BUN/Creatinine Ratio 17.9 (8-20); C Reactive Protein 32.9 mg/L (<8.01); Calcium 8.9 mg/dL (8.6-10.3); EGFR African American 176.6 (>60); Potassium 4.1 mmol/L (3.5-5.0)
[2018-12-07] MEDS: Lisinopril TAB* 10 MG PO SCH (09:22)
[2018-12-07] MEDS: Nystatin TOP POWDER* 15 GM BTL TOPICAL SCH ×3 (09:22→22:23)
[2018-12-07] MEDS: Cefepime 2 GM in Dextrose(*) 2 GM/50 ML BAG IV SCH (11:28)
[2018-12-07] MEDS ORDERED: Warfarin TAB(*) 10 MG PO ONE (17:00)
[2018-12-07] MEDS: CMCS: Pravastatin (NF) 20 MG TAB PO SCH (17:28)
[2018-12-07] MEDS: Acetaminophen TAB* 325 MG PO PRN (22:22)
[2018-12-08] MEDS: Cefepime 2 GM in Dextrose(*) 2 GM/50 ML BAG IV SCH ×2 (00:38→12:51)
[2018-12-08] MEDS: Vancomycin(*) 1,000 MG in NS 0.9% 250 ML* 250 ML IVPB SCH ×2 (03:30→09:44)
[2018-12-08 07:59] LABS: INR 1.7 (0.82-1.09)
[2018-12-08] MEDS: Gabapentin CAP(*) 300 MG PO SCH ×5 (08:21→23:24)
[2018-12-08 08:24] LABS: EGFR Non-African American 129.8 (>60)
[2018-12-08] MEDS ORDERED: Vancomycin Trough Check NOTE FOLLOW UP ONE (08:30)
[2018-12-08] MEDS: Acetaminophen TAB* 325 MG PO PRN ×2 (09:41→23:24)
[2018-12-08] MEDS: Lisinopril TAB* 10 MG PO SCH (09:41)
[2018-12-08] MEDS: Nystatin TOP POWDER* 15 GM BTL TOPICAL SCH ×3 (09:45→23:25)
[2018-12-08] MEDS ORDERED: Vancomycin(*) 1,000 MG in NS 0.9% 250 ML* 250 ML IVPB SCH ×2 (12:00→15:30)
[2018-12-08] MEDS ORDERED: Warfarin TAB(*) 10 MG PO ONE (17:00)
[2018-12-08] MEDS: CMCS: Pravastatin (NF) 20 MG TAB PO SCH (18:09)
[2018-12-08] MEDS: Cephalexin CAP* 500 MG PO SCH ×2 (18:10→23:23)
[2018-12-09] MEDS: Acetaminophen TAB* 325 MG PO PRN ×2 (04:59→10:25)
[2018-12-09] MEDS: Gabapentin CAP(*) 300 MG PO SCH ×2 (05:00→09:42)
[2018-12-09 07:13] LABS: INR 2.04 (0.82-1.09)
[2018-12-09] MEDS: Lisinopril TAB* 10 MG PO SCH (09:42)
[2018-12-09] MEDS: Cephalexin CAP* 500 MG PO SCH (09:42)
[2018-12-09] MEDS: Nystatin TOP POWDER* 15 GM BTL TOPICAL SCH (09:43)
[2018-12-09 13:31] VITALS: BP 154/71
--- NOTE | 2018-12-10 19:21 | DS ---
CC: Visiting nurse service * DISCHARGE SUMMARY: DATE OF ADMISSION: 12/01/18 DATE OF DISCHARGE: 12/09/18 DISCHARGE DIAGNOSES: 1. Cellulitis of the lower extremities. 2. History of pulmonary emboli, on chronic warfarin therapy. 3. History of DVT with venous insufficiency of the lower extremities. 4. Severe osteoarthritis. 5. Morbid obesity. 6. Hypertension 7. Hyperlipidemia, treated. 8. Decubitus ulcer of the left buttock. 9. Chronic constipation. 10. History of tinea cruris. 11. History of nonalcoholic steatohepatitis. 12. History of colonic polyps. 13. History of chewing tobacco. 14. Possible Parkinson disease. HISTORY: The patient is a 68-year-old man admitted with severe pain in the left lower extremity due to cellulitis. Please see the dictated admission note for details of the present illness, past medical history, family history, social and personal history, review of systems, and physical examination. DIAGNOSTIC STUDIES/LAB DATA: Laboratory: CBC on admission: WBC 11.2, H and H 13.1/38, MCV 83, PLT 216,000. CBC prior to discharge on 12/07/18: WBC 6.5, H and H 12.1/36, MCV 84, PLT 195,000. INR started at 2.79, was slightly subtherapeutic prior to discharge at 1.6. Chemistries on admission: Sodium 134 , potassium 4.3, chloride 98, CO2 of 28, BUN and creatinine 19/0.96, glucose 111. Rest of the comprehensive metabolic panel was within normal limits. Troponin was normal at 0.03. BNP was normal at 21. CRP was elevated at 93.82, went up to 128.68 on 12/04/18 with 98.81 on 12/05/18 and was down to 32.90 on . Vancomycin trough levels were 17.4 on 12/03/18, 16.4 on 12/05/18, and 20.4 on 12/08/18. Imaging: Venous Doppler study showed no right or left DVT. EKG on 12/01/18 showed sinus rhythm, low-voltage lateral precordial leads. No significant changes since 06/21/18. HOSPITAL COURSE: The patient was initially admitted and placed on bedrest with leg elevation. [place] to be a left lower extremity cellulitis as a complication of chronic venostasis problems in both legs. It subsequently came to be known during his hospitalization that he had a lift chair that was of help. He used to elevate his legs, but the lift chair was broken, as was his hospital bed. He is waiting for parts to get these fixed. It is probably the dependent position of his legs that contributed to his developing the cellulitis. He was treated with vancomycin and cefepime. DVT was ruled out. He was continued on these antibiotics until just the day before discharge when he was switched to cephalexin. He was continued on warfarin for DVT prophylaxis and INR was monitored and warfarin dose was adjusted. It was noted that he had a resting tremor consistent with Parkinson disease. This became less obvious during the course of his hospitalization. This will be monitored and we may refer him to neurologist for consultation if this is a persistent problem. He was noted to have a buttock ulcer as well during this hospitalization and he was seen by wound care for a consult on 12/06/18. Barrier cream was recommended and I subsequently ordered DuoDERM. It was about 1 to 1.5 cm. By the time of discharge, the patient was mobilizing with physical therapy. He felt that he could manage at home even though his bed and his chair were broken. He demonstrated to physical therapy that he could get in and out of bed independently. A case picker worked with him. He requested to be discharged. At the time of discharge, a referral was being made to visiting nurse service so they can monitor his buttock ulcer and monitor his warfarin doses. Prior to this, he had [place] getting [place] [facility] [place] legs had improved. By the time of discharge, he was feeling well. He had no edema. His chest was clear. His heart was regular. He is improved. DISCHARGE MEDICATIONS: He is being discharged on: 1. Acetaminophen 650 q.6 hours p.r.n. for pain. 2. Pravastatin 10 mg daily. 3. Gabapentin 600 mg 5 times a day. 4. Lisinopril 20 mg daily. 5. Nystatin topical powder 3 times a day. 6. MiraLAX 17 g twice a day as needed. 7. Warfarin 7 mg daily 6 days a week and 10 mg 1 day per week. DIET: As usual. ACTIVITIES: As tolerated. FOLLOWUP: He is to follow up with me in 1 to 2 weeks. CONDITION: His condition is improved. [id number]/[facility] #: [id number] DEREK
[2018-12-11] MEDS ORDERED: Vancomycin Trough Check NOTE FOLLOW UP ONE (15:30)
== END 2018-12-09 12:25 | disposition home or self-care (01) | DRG 603 ==
LOC: ED 20:05 → MED 22:18
PROVIDERS: ADMIT Internal Medicine; ATTEND Internal Medicine Geriatric Medicine
DX: L03.116 Cellulitis of left lower limb (principal); Z68.42 Body mass index [BMI] 45.0-49.9, adult; E66.01 Morbid (severe) obesity due to excess calories; I87.8 Other specified disorders of veins; I10 Essential (primary) hypertension; E78.5 Hyperlipidemia, unspecified; K75.81 Nonalcoholic steatohepatitis (NASH); R79.1 Abnormal coagulation profile; I73.9 Peripheral vascular disease, unspecified; E78.00 Pure hypercholesterolemia, unspecified; M16.0 Bilateral primary osteoarthritis of hip; M17.0 Bilateral primary osteoarthritis of knee; K63.5 Polyp of colon; L89.329 Pressure ulcer of left buttock, unspecified stage; K59.09 Other constipation; G20 Parkinson's disease; Z79.01 Long term (current) use of anticoagulants; Z86.718 Personal history of other venous thrombosis and embolism; Z86.711 Personal history of pulmonary embolism; Z87.891 Personal history of nicotine dependence; Z83.1 Family history of other infectious and parasitic diseases; Z80.0 Family history of malignant neoplasm of digestive organs; Z80.42 Family history of malignant neoplasm of prostate
CPT/HCPCS: 36415; 80048; 80053; 80202; 82565; 83880; 84484; 84520; 85025; 85027; 85610; 85730; 86140; 93005; 93970; 99285; A9270-GY; G8978-GP-CJ; G8978-GP-CL; G8979-GP-CI; G8979-GP-CK; J0692; J3370

== ENCOUNTER 2019-09-16 14:24 | Inpatient (IN) | payer MEDICARE, OTHER ==
[2019-09-16] MEDS ORDERED: Nystatin TOP POWDER 15 GM BTL TOPICAL ONE (14:49)
[2019-09-16 15:34] LABS: ABS Basophils 0.1 10^3/ul (0-0.2); ABS Lymphocytes 1.3 10^3/ul (1.0-4.8); ABS Monocytes 0.7 10^3/ul (0-0.8); Eosinophil % 0.2 %; Hematocrit 45 % (42-52); Hemoglobin 15.2 g/dL (14.0-18.0); Lymphocyte % 8.9 %; Mean Corpuscular HGB Conc 34 g/dL (31-36); Mean Corpuscular Hemoglobin 28 pg (27-31); Mean Corpuscular Volume 84 fL (80-94); Mean Platelet Volume 7.6 fL (7.4-10.4); Nucleated Red Blood Cells % 0.1; Platelet Count 270 10^3/uL (150-450); Red Blood Count 5.37 10^6 /uL (4.18-5.48); Red Cell Distribution Width 15 % (10-15); White Blood Count 14.9 10^3/uL (3.5-10.8)
[2019-09-16 15:42] LABS: Urine Appearance Clear; Urine Bilirubin Negative (Negative); Urine Blood Negative (Negative); Urine Color Yellow; Urine Glucose Negative (Negative); Urine Ketones Negative (Negative); Urine Nitrite Negative (Negative); Urine Protein Negative (Negative); Urine Urobilinogen Negative (Negative)
[2019-09-16 15:49] LABS: Activated Partial Thrombo Time 41.2 seconds (26.0-38.0)
[2019-09-16 15:53] LABS: Albumin 4.4 g/dL (3.2-5.2); Albumin/Globulin Ratio 1.1 (1-3); BUN/Creatinine Ratio 12.6 (8-20); C Reactive Protein 13.97 mg/L (<8.01); Calcium 9.9 mg/dL (8.6-10.3); EGFR Non-African American 66.1 (>60); Globulin 3.9 g/dL (2-4); Magnesium 1.8 mg/dL (1.9-2.7); Potassium 4.6 mmol/L (3.5-5.0); Total Bilirubin 0.8 mg/dL (0.2-1.0); Total Protein 8.3 g/dL (6.4-8.9)
[2019-09-16 15:54] LABS: Troponin I 0.01 ng/mL (<0.03)
[2019-09-16] MEDS ORDERED: cefTRIAXone ADVAN VIAL 1 GM in NS 0.9% 50 ML 50 ML IVPB ONE (15:56)
[2019-09-16] MEDS ORDERED: NS 0.9% 1000 ml BAG 1,000 ML IV ONE (15:56)
[2019-09-16] MEDS ORDERED: Ondansetron 4 mg VIAL 2 MG/ML 2 ml VIAL IV ONE (15:58)
[2019-09-16] MEDS ORDERED: Morphine 4 MG/ML VIAL (1 ml) IV ONE (15:58)
[2019-09-16 16:20] LABS: TSH (Thyroid Stimulating Horm) 3.04 mcIU/mL (0.34-5.60)
[2019-09-16] MEDS ORDERED: Ondansetron 4 mg VIAL 2 MG/ML 2 ml VIAL IV PRN (18:11)
[2019-09-16] MEDS ORDERED: Nicotine GUM 2MG FRUIT FLAVOR PO PRN (18:21)
[2019-09-16 18:35] LABS: INR 3.05 (0.82-1.09)
[2019-09-16] MEDS: Nicotine PATCH 7 MG/24 HR PATCH TRANSDERM SCH (21:01)
[2019-09-16] MEDS: Nystatin TOP POWDER 15 GM BTL TOPICAL SCH (21:09)
[2019-09-16] MEDS: NS 0.9% 1000 ml BAG 1,000 ML IV SCH (21:10)
[2019-09-17 04:11] LABS: ABS Basophils 0.1 10^3/ul (0-0.2); ABS Eosinophils 0.2 10^3/ul (0-0.6); ABS Lymphocytes 2.3 10^3/ul (1.0-4.8); ABS Monocytes 0.9 10^3/ul (0-0.8); Hematocrit 38 % (42-52); Lymphocyte % 23.8 %; Mean Corpuscular HGB Conc 34 g/dL (31-36); Mean Corpuscular Hemoglobin 29 pg (27-31); Mean Corpuscular Volume 84 fL (80-94); Platelet Count 213 10^3/uL (150-450); Red Blood Count 4.55 10^6 /uL (4.18-5.48); Red Cell Distribution Width 14 % (10-15); White Blood Count 9.6 10^3/uL (3.5-10.8)
[2019-09-17 04:19] LABS: INR 3.61 (0.82-1.09)
[2019-09-17 04:20] LABS: BUN/Creatinine Ratio 14.5 (8-20); Calcium 8.6 mg/dL (8.6-10.3); EGFR African American 111.8 (>60); EGFR Non-African American 92.4 (>60); Potassium 3.9 mmol/L (3.5-5.0)
[2019-09-17] MEDS ORDERED: Warfarin per PHARMACY **NOTE FOLLOW UP SCH (09:00)
[2019-09-17] MEDS: CMC:Pravastatin (NF) 20 MG TAB PO SCH (09:10)
[2019-09-17] MEDS: Nicotine PATCH 7 MG/24 HR PATCH TRANSDERM SCH (09:12)
[2019-09-17] MEDS: Nystatin TOP POWDER 15 GM BTL TOPICAL SCH ×3 (09:14→22:49)
[2019-09-17] MEDS: NS 0.9% 1000 ml BAG 1,000 ML IV SCH (10:58)
[2019-09-17] MEDS: Nicotine PATCH 14 MG/24 HR PATCH TRANSDERM SCH (12:22)
[2019-09-17] MEDS: cefTRIAXone ADVAN VIAL 1 GM in NS 0.9% 50 ML 50 ML IVPB SCH (12:24)
[2019-09-17] MEDS ORDERED: Warfarin - No Order Today **NOTE FOLLOW UP ONE (17:00)
[2019-09-18] MEDS: NS 0.9% 1000 ml BAG 1,000 ML IV SCH ×2 (00:30→13:04)
[2019-09-18 06:47] LABS: ABS Eosinophils 0.3 10^3/ul (0-0.6); ABS Lymphocytes 1.7 10^3/ul (1.0-4.8); ABS Monocytes 0.7 10^3/ul (0-0.8); Eosinophil % 3.5 %; Hematocrit 36 % (42-52); Hemoglobin 12.3 g/dL (14.0-18.0); Lymphocyte % 22.2 %; Mean Corpuscular HGB Conc 34 g/dL (31-36); Mean Corpuscular Hemoglobin 29 pg (27-31); Mean Corpuscular Volume 85 fL (80-94); Mean Platelet Volume 7.3 fL (7.4-10.4); Platelet Count 178 10^3/uL (150-450); Red Blood Count 4.28 10^6 /uL (4.18-5.48); Red Cell Distribution Width 15 % (10-15); White Blood Count 7.9 10^3/uL (3.5-10.8)
[2019-09-18 06:52] LABS: INR 2.16 (0.82-1.09)
[2019-09-18] MEDS: Nicotine PATCH 14 MG/24 HR PATCH TRANSDERM SCH (09:48)
[2019-09-18] MEDS: CMC:Pravastatin (NF) 20 MG TAB PO SCH (09:48)
[2019-09-18] MEDS: Nystatin TOP POWDER 15 GM BTL TOPICAL SCH ×3 (09:50→22:41)
[2019-09-18] MEDS: cefTRIAXone ADVAN VIAL 1 GM in NS 0.9% 50 ML 50 ML IVPB SCH (12:14)
[2019-09-18] MEDS: Magnesium Hydroxide LIQ 30 ML UDC PO SCH (22:39)
[2019-09-19 07:00] LABS: INR 1.49 (0.82-1.09)
[2019-09-19] MEDS: Magnesium Hydroxide LIQ 30 ML UDC PO SCH ×2 (09:25→20:19)
[2019-09-19] MEDS: Nicotine PATCH 14 MG/24 HR PATCH TRANSDERM SCH ×2 (09:26→18:25)
[2019-09-19] MEDS: Nystatin TOP POWDER 15 GM BTL TOPICAL SCH ×3 (09:29→21:52)
[2019-09-19] MEDS: CMC:Pravastatin (NF) 20 MG TAB PO SCH (09:29)
[2019-09-19 11:41] LABS: Vitamin D Total 25(OH) < 7.0 ng/mL (20-50)
[2019-09-19] MEDS: Nicotine Lozenge mini 4 MG LOZNG.MINI MT PRN ×2 (11:58→18:20)
[2019-09-19] MEDS ORDERED: Polyethylene Glycol 3350 17 GM PACKET PO PRN (16:37)
[2019-09-20 06:30] LABS: INR 1.38 (0.82-1.09)
[2019-09-20] MEDS: CMC:Pravastatin (NF) 20 MG TAB PO SCH (08:57)
[2019-09-20] MEDS: Nicotine PATCH 14 MG/24 HR PATCH TRANSDERM SCH (09:01)
[2019-09-20] MEDS: Magnesium Hydroxide LIQ 30 ML UDC PO SCH ×2 (09:02→21:14)
[2019-09-20] MEDS: Nystatin TOP POWDER 15 GM BTL TOPICAL SCH ×3 (10:57→21:49)
[2019-09-20] MEDS: Nicotine Lozenge mini 4 MG LOZNG.MINI MT PRN ×2 (16:41→21:21)
[2019-09-21 06:22] LABS: INR 1.4 (0.82-1.09)
[2019-09-21 07:43] VITALS: BP 120/46
[2019-09-21] MEDS: Nystatin TOP POWDER 15 GM BTL TOPICAL SCH (08:33)
[2019-09-21] MEDS: Nicotine PATCH 14 MG/24 HR PATCH TRANSDERM SCH (08:40)
[2019-09-21] MEDS: Magnesium Hydroxide LIQ 30 ML UDC PO SCH (08:40)
[2019-09-21] MEDS: CMC:Pravastatin (NF) 20 MG TAB PO SCH (08:40)
== END 2019-09-21 10:12 | DRG 872 ==
LOC: ED 14:24 → SSU 18:07 → OBSVTOIN 09-17 11:20
PROVIDERS: ADMIT Nurse Practitioner Acute Care; ATTEND Hospitalist

== ENCOUNTER 2021-03-09 06:58 | Inpatient (IN) ==
[2021-03-09] MEDS ORDERED: NS 0.45% 1000 ml BAG 1,000 ML IV SCH (08:00)
[2021-03-09 08:08] LABS: Hematocrit 41 % (42-52); Hemoglobin 13.8 g/dL (14.0-18.0); Mean Corpuscular HGB Conc 34 g/dL (31-36); Mean Corpuscular Hemoglobin 28 pg (27-31); Mean Corpuscular Volume 83 fL (80-94); Mean Platelet Volume 7.7 fL (7.4-10.4); Platelet Count 176 10^3/uL (150-450); Red Blood Count 4.87 10^6 /uL (4.18-5.48); Red Cell Distribution Width 15 % (10-15); White Blood Count 16.2 10^3/uL (3.5-10.8)
[2021-03-09] MEDS ORDERED: NS 0.9% 1000 ml BAG 1,000 ML IV ONE (08:12)
[2021-03-09] MEDS ORDERED: Nicotine PATCH 21 MG/24 HR PATCH TRANSDERM ONE (08:13)
[2021-03-09] MEDS ORDERED: HYDROcodone/ACETAMIN 5/325 mg TAB PO ONE (08:14)
[2021-03-09 08:27] LABS: ALT 14 U/L (7-52); AST 50 U/L (13-39); Albumin 3.8 g/dL (3.2-5.2); Alkaline Phosphatase 75 U/L (35-149); Anion Gap 8 mmol/L (2-11); Blood Urea Nitrogen 18 mg/dL (6-24); C Reactive Protein 190.63 mg/L (<8.01); CO2 Carbon Dioxide 27 mmol/L (22-32); Calcium 9.2 mg/dL (8.6-10.3); Chloride 94 mmol/L (101-111); Globulin 3.9 g/dL (2-4); Glucose 133 mg/dL (70-100); Lipase < 10 U/L (11.0-82.0); Potassium 4.2 mmol/L (3.5-5.0); Sodium 129 mmol/L (135-145); Total Protein 7.7 g/dL (6.4-8.9)
[2021-03-09 08:43] LABS: Creatine Kinase 3437 U/L (10-223)
[2021-03-09 09:23] LABS: Urine Appearance Turbid; Urine Bilirubin Negative (Negative); Urine Blood 3+ (Negative); Urine Color Amber; Urine Glucose Negative (Negative); Urine Ketones 1+ (Negative); Urine Nitrite Positive (Negative); Urine Protein 2+(100 mg/dL) (Negative); Urine Specific Gravity 1.025 (1.002-1.030); Urine Urobilinogen Negative (Negative)
[2021-03-09 09:38] LABS: Urine Bacteria 2+ (Absent); Urine Red Blood Cell 3+(>10/hpf) (Absent); Urine White Blood Cell 3+(>20/hpf) (Absent)
[2021-03-09 09:57] LABS: ABS Basophils 0.1 10^3/ul (0-0.2); ABS Lymphocytes 1.1 10^3/ul (1.0-4.8); ABS Monocytes 1.3 10^3/ul (0-0.8); ABS Neutrophils 13.7 10^3/ul (1.5-7.7); Eosinophil % 0.1 %; Lymphocyte % 6.7 %
[2021-03-09] MEDS ORDERED: cefTRIAXone 1 gm/50 mL NS BAG 1 GM/50 ML BAG IV ONE (09:59)
[2021-03-09] MEDS ORDERED: Al Hydrox/Mg Hydrox/Simet LIQ 30 ML UDC PO PRN (11:05)
[2021-03-09] MEDS ORDERED: Ondansetron 4 mg VIAL 2 MG/ML 2 ml VIAL IV PRN (11:05)
[2021-03-09] MEDS ORDERED: Senna TAB 8.6 mg TAB PO PRN (11:17)
[2021-03-09 11:50] LABS: Magnesium 1.7 mg/dL (1.9-2.7)
[2021-03-09] MEDS ORDERED: Warfarin per PHARMACY **NOTE FOLLOW UP SCH (12:00)
[2021-03-09 12:20] LABS: Vitamin D Total 25(OH) 7.7 ng/mL (20-50)
[2021-03-09] MEDS ORDERED: Magnesium Sulfate 2 gm BAG 2 GM/50 ML BAG IVPB ONE (12:41)
[2021-03-09 14:14] LABS: INR 2.46 (0.86-1.15)
[2021-03-09 14:26] LABS: Rapid COVID-19 Molecular Undetected (Undetected)
[2021-03-09] MEDS: NS 0.9% 1000 ml BAG 1,000 ML IV SCH (17:28)
[2021-03-09] MEDS: CMCS:Pravastatin 20 mg TAB (NF) PO SCH (20:32)
[2021-03-09] MEDS: Nicotine PATCH 21 MG/24 HR PATCH TRANSDERM SCH (22:16)
[2021-03-09 22:48] LABS: Urine Appearance Cloudy; Urine Bilirubin Negative (Negative); Urine Blood 2+ (Negative); Urine Color Amber; Urine Glucose Negative (Negative); Urine Ketones Negative (Negative); Urine Nitrite Negative (Negative); Urine Protein 2+(100 mg/dL) (Negative); Urine Specific Gravity 1.026 (1.002-1.030); Urine Urobilinogen Positive (Negative)
[2021-03-09 22:53] LABS: Urine Bacteria Absent (Absent); Urine Red Blood Cell 3+(>10/hpf) (Absent); Urine White Blood Cell 3+(>20/hpf) (Absent)
[2021-03-10] MEDS: NS 0.9% 1000 ml BAG 1,000 ML IV SCH (03:36)
[2021-03-10 06:38] LABS: ABS Eosinophils 0.2 10^3/ul (0-0.6); ABS Lymphocytes 1.5 10^3/ul (1.0-4.8); ABS Monocytes 1.2 10^3/ul (0-0.8); Eosinophil % 1.4 %; Hematocrit 40 % (42-52); Hemoglobin 13.2 g/dL (14.0-18.0); Lymphocyte % 12.4 %; Mean Corpuscular HGB Conc 33 g/dL (31-36); Mean Corpuscular Hemoglobin 28 pg (27-31); Mean Corpuscular Volume 85 fL (80-94); Mean Platelet Volume 7.7 fL (7.4-10.4); Platelet Count 137 10^3/uL (150-450); Red Blood Count 4.71 10^6 /uL (4.18-5.48); Red Cell Distribution Width 15 % (10-15); White Blood Count 11.9 10^3/uL (3.5-10.8)
[2021-03-10 06:46] LABS: INR 2.32 (0.86-1.15)
[2021-03-10 06:59] LABS: Calcium 8.6 mg/dL (8.6-10.3); Potassium 4.2 mmol/L (3.5-5.0)
[2021-03-10] MEDS: Nicotine PATCH 21 MG/24 HR PATCH TRANSDERM SCH (08:13)
[2021-03-10] MEDS: Nystatin TOP POWDER 15 GM BTL TOPICAL SCH ×2 (08:20→22:36)
[2021-03-10] MEDS: cefTRIAXone 1 gm/50 mL NS BAG 1 GM/50 ML BAG IVPB SCH (11:03)
[2021-03-10] MEDS: CMCS:Pravastatin 20 mg TAB (NF) PO SCH (16:30)
[2021-03-11 06:54] LABS: INR 1.98 (0.86-1.15)
[2021-03-11 06:59] LABS: ABS Eosinophils 0.2 10^3/ul (0-0.6); ABS Lymphocytes 1.1 10^3/ul (1.0-4.8); ABS Monocytes 0.8 10^3/ul (0-0.8); ABS Neutrophils 4.8 10^3/ul (1.5-7.7); Eosinophil % 2.8 %; Hematocrit 36 % (42-52); Hemoglobin 12.3 g/dL (14.0-18.0); Mean Corpuscular HGB Conc 34 g/dL (31-36); Mean Corpuscular Hemoglobin 28 pg (27-31); Mean Corpuscular Volume 82 fL (80-94); Platelet Count 160 10^3/uL (150-450); Red Blood Count 4.36 10^6 /uL (4.18-5.48); Red Cell Distribution Width 15 % (10-15); White Blood Count 6.9 10^3/uL (3.5-10.8)
[2021-03-11 07:10] LABS: Albumin 3.2 g/dL (3.2-5.2); C Reactive Protein 146.83 mg/L (<8.01); Calcium 8.4 mg/dL (8.6-10.3); Globulin 3.2 g/dL (2-4); Magnesium 1.9 mg/dL (1.9-2.7); Total Bilirubin 0.5 mg/dL (0.2-1.0); Total Protein 6.4 g/dL (6.4-8.9)
[2021-03-11] MEDS: Nicotine PATCH 21 MG/24 HR PATCH TRANSDERM SCH (08:46)
[2021-03-11] MEDS: Nystatin TOP POWDER 15 GM BTL TOPICAL SCH ×2 (08:49→20:52)
[2021-03-11] MEDS: cefTRIAXone 1 gm/50 mL NS BAG 1 GM/50 ML BAG IVPB SCH (10:48)
[2021-03-11] MEDS: Warfarin DAILY REMINDER **NOTE FOLLOW UP SCH (16:23)
[2021-03-11] MEDS: CMCS:Pravastatin 20 mg TAB (NF) PO SCH (17:00)
[2021-03-12 07:32] LABS: INR 2.14 (0.86-1.15)
[2021-03-12] MEDS: Nicotine PATCH 21 MG/24 HR PATCH TRANSDERM SCH (09:32)
[2021-03-12] MEDS: Nystatin TOP POWDER 15 GM BTL TOPICAL SCH ×2 (10:24→20:13)
[2021-03-12] MEDS: cefTRIAXone 1 gm/50 mL NS BAG 1 GM/50 ML BAG IVPB SCH (11:49)
[2021-03-12] MEDS: Warfarin DAILY REMINDER **NOTE FOLLOW UP SCH (18:26)
[2021-03-12] MEDS: CMCS:Pravastatin 20 mg TAB (NF) PO SCH (18:29)
[2021-03-13 07:55] LABS: ABS Eosinophils 0.3 10^3/ul (0-0.6); ABS Lymphocytes 1.8 10^3/ul (1.0-4.8); ABS Monocytes 1.1 10^3/ul (0-0.8); ABS Neutrophils 3.6 10^3/ul (1.5-7.7); Eosinophil % 4.5 %; Hematocrit 41 % (42-52); Hemoglobin 13.7 g/dL (14.0-18.0); Lymphocyte % 26.5 %; Mean Corpuscular HGB Conc 34 g/dL (31-36); Mean Corpuscular Hemoglobin 28 pg (27-31); Mean Corpuscular Volume 84 fL (80-94); Mean Platelet Volume 7.3 fL (7.4-10.4); Platelet Count 185 10^3/uL (150-450); Red Blood Count 4.85 10^6 /uL (4.18-5.48); Red Cell Distribution Width 16 % (10-15); White Blood Count 6.8 10^3/uL (3.5-10.8)
[2021-03-13 08:12] LABS: Calcium 8.9 mg/dL (8.6-10.3); Potassium 4.5 mmol/L (3.5-5.0)
[2021-03-13 08:15] LABS: INR 2.12 (0.86-1.15)
[2021-03-13] MEDS: Nicotine PATCH 21 MG/24 HR PATCH TRANSDERM SCH (09:32)
[2021-03-13] MEDS: Nystatin TOP POWDER 15 GM BTL TOPICAL SCH (10:53)
[2021-03-13 11:23] VITALS: BP 133/76
[2021-03-13] MEDS: cefTRIAXone 1 gm/50 mL NS BAG 1 GM/50 ML BAG IVPB SCH (11:42)
[2021-03-13 14:39] LABS: Rapid COVID-19 Molecular Undetected (Undetected)
== END 2021-03-13 16:15 | DRG 699 ==
LOC: ED 06:58 → SUATTDRO 11:06 → EDHOLD 11:06 → SSU 17:50
PROVIDERS: ADMIT Pediatrics; ATTEND Hospitalist